=== PATIENT | female | born 1950 | race Caucasian/White ===

== ENCOUNTER → 2020-06-13 12:57 | Outpatient (BNVA) | payer MEDICARE, MEDICAID, SELFPAY | PROVIDERS: Visit Provider Internal Medicine Cardiovascular Disease | DX: R00.2 Palpitations (principal); R07.9 Chest pain, unspecified | CPT/HCPCS: 93005; 99212 ==

== ENCOUNTER 2020-06-29 13:12 | Outpatient (REF) | payer MEDICARE, MEDICAID, SELFPAY ==
--- NOTE | 2020-06-29 | MM_ITS ---
EXAMINATION: MM SCREENING DIGITAL BREAST TOMOSYNTHESIS, BILATERAL CLINICAL INFORMATION: Screening. Asymptomatic. The lifetime risk of breast cancer based on the Tyrer-Cuzick Model is 7%. COMPARISON: Mammography: 06/24/2019, 06/02/2017 TECHNIQUE: Digital breast tomosynthesis is performed in both the craniocaudal and mediolateral oblique views along with computer-aided detection (CAD). Synthesized 2D images are generated from the tomosynthesis. FINDINGS: There are scattered areas of fibroglandular density (ACR BI-RADS breast composition Category b). There are no significant masses, abnormal calcifications, or other abnormalities. There is biopsy clip marker again noted mid 9:00 left breast. The axilla and skin contours are unremarkable. MM/MM tomosynthesis screening BI IMPRESSION: No mammographic evidence of malignancy. ASSESSMENT: BI-RADS 1: Negative RECOMMENDATION: Routine annual mammography screening. This patient's information was entered into a reminder system with a target due date for their next mammogram.
== END 2020-06-29 13:13 | disposition home or self-care (01) ==
LOC: HO.MAMMO 13:12
PROVIDERS: Visit Provider Family Medicine
DX: Z12.31 Encounter for screening mammogram for malignant neoplasm of breast (principal)
CPT/HCPCS: 77063; 77067

== ENCOUNTER 2020-08-21 07:34 | Outpatient (REF) | payer MEDICARE, MEDICAID, SELFPAY ==
--- NOTE | ~2020-08-21 | XR_ITS ---
EXAMINATION: XR SHOULDER, RIGHT CLINICAL INFORMATION: Right shoulder pain COMPARISON: None TECHNIQUE: AP external rotation, Grashey, scapular Y, and axillary views of the right shoulder. FINDINGS: There is mild loss of right glenohumeral and AC joint space with moderate hypertrophic changes of right AC joint and mild enthesophytes along the greater tuberosity. No loose bodies, bony changes or soft tissue calcifications seen. No visible acute fracture. XR/XR shoulder RT min 2V IMPRESSION: Degenerative arthritic changes right shoulder. No acute fracture, loose bodies or soft tissue calcification.
== END 2020-08-21 07:35 | disposition home or self-care (01) ==
LOC: HO.HOSX 07:34
PROVIDERS: Visit Provider Orthopaedic Surgery
DX: M75.41 Impingement syndrome of right shoulder (principal)
CPT/HCPCS: 73030; 99202; J1040

== ENCOUNTER → 2020-08-30 14:02 | Outpatient (BNVA) | payer MEDICARE, MEDICAID, SELFPAY | PROVIDERS: PCP Family Medicine; Referring Provider Family Medicine; Visit Provider Physician Assistant | DX: Z87.19 Personal history of other diseases of the digestive system (principal) | CPT/HCPCS: 99212 ==

== ENCOUNTER → 2021-03-25 14:46 | Outpatient (BNVA) | payer MEDICARE, MEDICAID, SELFPAY | PROVIDERS: PCP Family Medicine; Referring Provider Family Medicine; Visit Provider Internal Medicine Cardiovascular Disease | DX: R00.2 Palpitations (principal); R07.9 Chest pain, unspecified | CPT/HCPCS: 99212 ==

== ENCOUNTER 2021-07-01 13:31 | Outpatient (REF) | payer MEDICARE, MEDICAID, SELFPAY ==
--- NOTE | ~2021-07-01 | MM_ITS ---
EXAMINATION: MM SCREENING DIGITAL BREAST TOMOSYNTHESIS, BILATERAL CLINICAL INFORMATION: Screening. Asymptomatic. The lifetime risk of breast cancer based on the Tyrer-Cuzick Model is 3%. COMPARISON: Mammography: 06/29/2020, 06/24/2019, 06/02/2017 TECHNIQUE: Digital breast tomosynthesis is performed in both the craniocaudal and mediolateral oblique views along with computer-aided detection (CAD). Synthesized 2D images are generated from the tomosynthesis. FINDINGS: There are scattered areas of fibroglandular density (ACR BI-RADS breast composition Category b). There are no significant masses, abnormal calcifications, or other abnormalities. Parenchymal pattern is similar to prior exams. No developing density. Biopsy clip marker again noted mid 9:00 left breast. The axilla and skin contours are unremarkable. MM/MM tomosynthesis screening BI IMPRESSION: No mammographic evidence of malignancy. ASSESSMENT: BI-RADS 1: Negative RECOMMENDATION: Routine annual mammography screening. This patient's information was entered into a reminder system with a target due date for their next mammogram.
== END 2021-07-01 13:32 | disposition home or self-care (01) ==
LOC: HO.MAMMO 13:31
PROVIDERS: PCP Family Medicine; Visit Provider Family Medicine
DX: Z12.31 Encounter for screening mammogram for malignant neoplasm of breast (principal)
CPT/HCPCS: 77063; 77067

== ENCOUNTER 2022-03-02 08:57 | Emergency (ER) | payer MEDICARE, MEDICAID, SELFPAY ==
[2022-03-02 09:31] VITALS: BP 143/72; PULSE 114; RESP 19; TEMP 37.9; O2SAT 95; BMI 25.4
--- NOTE | 2022-03-02 11:05 | ED_ITS ---
HPI - General Adult General Chief complaint: Upper Respiratory Symptoms Stated complaint: COVID+/Cough/SOB Time Seen by Provider: 03/02/22 11:05 Source: patient Mode of arrival: ambulatory Limitations: no limitations History of Present Illness HPI narrative: Patient is a 71 year old female presenting to the emergency department today with a cough. Patient states that tested positive for COVID-19 2 days ago and she is still having a cough and feeling generally unwell. Patient denies any dizziness, lightheadedness, abdominal pain, nausea, vomiting, chills, blurry vision, double vision, loss of vision, chest pain, difficulty breathing, shortness of breath, back pain, night sweats, pain with urination, increased urinary frequency, increased urinary urgency, blood in her urine or stool, syncope or a near syncopal episode, recent trauma or falls, bowel incontinence, bladder incontinence, bowel retention, bladder retention, or any other complaints at this time. Onset (ago): day(s) (2) Radiation: non-radiation Severity: mild Severity scale (1-10): 2 Relieving factors: none Exacerbating factors: none Associated symptoms: cough and fever/chills Treatments prior to arrival: none Related Data Home Medications Medication Instructions Recorded Confirmed atenolol 50 mg tablet 50 mg PO DAILY 06/13/20 03/25/21 atorvastatin 80 mg tablet (Lipitor) 80 mg PO DAILY 06/13/20 03/25/21 gabapentin 300 mg capsule 300 mg PO DAILY 06/13/20 03/25/21 lorazepam 0.5 mg tablet 0.5 mg PO DAILY PRN 06/13/20 03/25/21 sennosides 8.6 mg tablet (senna) 8.6 mg PO DAILY 08/30/20 03/25/21 clonazepam 0.5 mg tablet mg PO 03/25/21 03/25/21 fluticasone propionate 110 inhalation 03/25/21 03/25/21 mcg/actuation HFA aerosol inhaler (Flovent HFA) gabapentin 100 mg capsule mg PO 03/25/21 03/25/21 hydroxyzine HCl 25 mg tablet mg PO 03/25/21 03/25/21 lisinopril 10 mg tablet mg PO 03/25/21 03/25/21 metformin 500 mg tablet mg PO 03/25/21 03/25/21 mirtazapine 15 mg tablet mg PO 03/25/21 03/25/21 nortriptyline 25 mg capsule mg PO 03/25/21 03/25/21 omeprazole 20 mg capsule,delayed mg PO 03/25/21 03/25/21 release quetiapine 25 mg tablet mg PO 03/25/21 03/25/21 risperidone 1 mg tablet mg PO 03/25/21 03/25/21 sertraline 100 mg tablet mg PO 03/25/21 03/25/21 Previous Rx's Medication Instructions Recorded benzonatate 100 mg capsule 100 mg PO BID PRN cough 7 days #14 03/02/22 caps Allergies Allergy/AdvReac Type Severity Reaction Status Date / Time penicillin G [Penicillin G] Allergy Intermediate RASH Verified 03/02/22 09:31 penicillin V Allergy Intermediate Bleeding Verified 03/02/22 09:31 seafood Allergy Severe Itching,swe Uncoded 10/25/20 13:12 lling Shellfish Allergy Severe SOB,HIVES Uncoded 10/25/20 13:12 Review of Systems Constitutional: Constitutional: Reports no additional constitutional complaints, Denies chills, Reports fever(s) and Denies night sweats Eyes: Eyes: Reports no additional eye complaints, Denies blurry vision, Denies change in vision, Denies diplopia, Denies eye discharge, Denies loss of vision and Denies eye pain ENT: Denies dizziness Cardiovascular: Cardiovascular: Reports no additional cardiovascular complaints, Denies chest pain, Denies lightheadedness, Denies Loss of Consciousness and Denies dyspnea Respiratory: Respiratory: Reports no additional respiratory complaints, Reports cough and Denies dyspnea Gastrointestinal: Gastrointestinal: Reports no additional gastrointestinal complaints, Denies abdominal pain, Denies melena, Denies hematochezia, Denies change in bowel habits and Denies change in stool character Genitourinary: Genitourinary: Denies hematuria, Denies urinary frequency, Denies dysuria, Denies urinary incontinence, Denies urinary hesitancy and Denies urinary urgency Musculoskeletal: Musculoskeletal: Reports no additional musculoskeletal complaints, Denies numbness and Denies tingling Neurologic: Denies dizziness, Denies loss of vision, Denies numbness and Denies tingling Psychiatric: Psychiatric: Reports no additional psychiatric complaints Endocrine: Endocrine: Reports no additional endocrine complaints Hematologic/Lymphatic: Hematologic/Lymphatic: Reports no additional hematologic/lymphatic complaints Allergic/Immunologic: Allergic/Immunologic: Reports no additional allergic/immunologic complaints [facility] Past Medical History Attestation statement: The following information was validated with the patient. Source: old records reviewed Medical History Asthma Chest pain Chronic fatigue GERD (gastroesophageal reflux disease) Palpitations Scoliosis Surgical History H/O: hysterectomy Family History Family History Father Renal failure Mother Alzheimer disease Social History Social History Household Members: Children Alcohol intake: never Advance Directives: No Advance Directives Information Provided: Yes Current occupational status: retired Physical Exam ED Vital Signs: Vital Signs - 24 hr 03/02/22 09:31 Temperature 100.3 F Pulse Rate 114 H Respiratory Rate 19 Blood Pressure 143/72 H Pulse Oximetry 95 Oxygen Delivery Method Room Air BMI result Body Mass Index 25.4 Const General: cooperative, no acute distress, alert and awake Nutritional Appearance: well nourished Orientation/consciousness: patient oriented x3 Limitations: no limitations HENMT Head: Yes normal to inspection and Yes atraumatic Ears: hearing grossly normal bilaterally and external ears normal General nose exam: Normal external nose present, no nasal discharge noted and no epistaxis Face and sinus: Yes normal facial exam, No abrasion and No laceration Mouth: Normal oral and palatal mucosa present, no drooling and no muffled voice Eyes General: appearance normal, both eyes and all related structures Periorbital: periorbital findings normal Eyelids: Yes eyelids normal Conjunctivae: conjunctivae normal Pupils: Equal, round and reactive pupils present EOM: EOMs intact bilaterally Neck Neck: Yes normal visual inspection, Yes full ROM and Yes no lymphadenopathy Chest Chest palpation & inspection: normal inspection of the chest Resp Effort & Inspection: normal respiratory effort and able to speak in complete sentences Auscultation: clear to auscultation bilaterally Cardio Rate: regular rate Rhythm: regular rhythm GI Inspection: Yes normal to inspection Neuro General: patient oriented x3 and moves all extremities Cranial nerves: Yes Equal, round and reactive pupils present Cognition (Neuro): normal cognition Motor exam (neuro): 5/5 motor strength present throughout Sensory Exam: Normal double simultaneous stimulation for sensation Coordination: [id number] test normal Extrem General: Yes normal to inspection, Yes full ROM and Yes capillary refill normal Psych Appearance: grossly normal Mental Status: mental status grossly normal Affect: normal affect Attitude: cooperative Thought process: Normal thought process present Thought content: Normal thought content present Insight: Good insight present (Psych) Medical Decision Making MDM Narrative Medical decision making narrative: Patient is a 71 year old female presenting to the emergency department today with a cough and feeling generally unwell. Patient's physical exam was unremarkable. Patient's COVID-19 test was positive at home. I explained my physical exam findings to the patient. I answered all questions asked by the patient. Patient received PO Tylenol which she stated helped her symptoms significantly. I stressed the importance of the patient taking her medication as prescribed. I stressed the importance of the patient following up with her primary care provider. I stressed the importance of the patient returning to the emergency department immediately if her symptoms were to worsen or if she were to develop any dizziness, shortness of breath, difficulty breathing, chest pain, blurry vision, loss of vision, nausea, vomiting, abdominal pain, fever, chills, back pain, or any other complaints. Patient verbalized agreement and understanding with this treatment plan and discharge. Differential Diagnosis Differential Diagnosis: COVID-19 Medical Records Medical records reviewed: Yes I reviewed the patient's medical records. Discharge Plan Discharge Clinical Impression: COVID-19 Patient Disposition: Home, Self-Care Instructions: COVID-19 (Coronavirus Disease 2019) (ED) Additional Instructions: Follow up with your primary care provider. Return to the emergency department immediately if your symptoms worsen or if you develop any dizziness, shortness of breath, difficulty breathing, chest pain, blurry vision, loss of vision, nausea, vomiting, abdominal pain, fever, chills, back pain, or any other complaints. Prescriptions: New benzonatate 100 mg capsule 100 mg PO BID PRN (Reason: cough) 7 Days Qty: 14 0RF No Action sennosides [senna] 8.6 mg tablet 8.6 mg PO DAILY atenolol 50 mg tablet 50 mg PO DAILY lorazepam 0.5 mg tablet 0.5 mg PO DAILY PRN atorvastatin [Lipitor] 80 mg tablet 80 mg PO DAILY gabapentin 300 mg capsule 300 mg PO DAILY Flovent HFA 110 mcg/actuation HFA aerosol inhaler inhalation risperidone 1 mg tablet PO mirtazapine 15 mg tablet PO gabapentin 100 mg capsule PO hydroxyzine HCl 25 mg tablet PO omeprazole 20 mg capsule,delayed release(DR/EC) PO lisinopril 10 mg tablet PO nortriptyline 25 mg capsule PO sertraline 100 mg tablet PO metformin 500 mg tablet PO quetiapine 25 mg tablet PO clonazepam 0.5 mg tablet PO Referrals: Michell Rogers DO [Primary Care Provider] - Stand Alone Forms: Work/School Release Print Language: [place]
[2022-03-02] MEDS: Acetaminophen 325 MG TABLET 650 MG PO (11:21)
== END 2022-03-02 11:29 | disposition home or self-care (01) ==
PROVIDERS: Emergency Provider Internal Medicine; PCP Family Medicine
DX: U07.1 COVID-19 (principal); R05.9 Cough, unspecified; R06.02 Shortness of breath; Z79.899 Other long term (current) drug therapy
CPT/HCPCS: 99283

== ENCOUNTER 2022-07-22 09:47 | Outpatient (REF) | payer OTHER, SELFPAY ==
--- NOTE | ~2022-07-22 | MM_ITS ---
EXAMINATION: MM SCREENING DIGITAL BREAST TOMOSYNTHESIS, BILATERAL CLINICAL INFORMATION: Screening. Asymptomatic. The lifetime risk of breast cancer based on the Tyrer-Cuzick Model is 3%. COMPARISON: Mammography: 07/01/2021, 06/29/2020, 06/24/2019 TECHNIQUE: Digital breast tomosynthesis is performed in both the craniocaudal and mediolateral oblique views along with computer-aided detection (CAD). Synthesized 2D images are generated from the tomosynthesis. FINDINGS: There are scattered areas of fibroglandular density (ACR BI-RADS breast composition Category b). There are no significant masses, abnormal calcifications, or other abnormalities. Breast tissue composition borders on predominantly fatty. Background stromal and fibroglandular densities are stable. No architectural abnormality or developing density. The axilla are unremarkable. No significant changes. Incidental biopsy clip marker again noted mid 9:00 left breast. MM/MM tomosynthesis screening BI IMPRESSION: No mammographic evidence of malignancy. ASSESSMENT: BI-RADS 1: Negative RECOMMENDATION: Routine annual mammography screening. This patient's information was entered into a reminder system with a target due date for their next mammogram.
== END 2022-07-22 09:48 | disposition home or self-care (01) ==
LOC: HO.MAMMO 09:47
PROVIDERS: Visit Provider Family Medicine
DX: Z12.31 Encounter for screening mammogram for malignant neoplasm of breast (principal)
CPT/HCPCS: 77063; 77067

== ENCOUNTER 2022-09-25 10:42 | Outpatient (REF) | payer OTHER, SELFPAY ==
--- NOTE | ~2022-09-25 | XR_ITS ---
EXAMINATION: XR CHEST CLINICAL INFORMATION: Reason for Exam BRONCHITIS COMPARISON: Rib radiographs 10/26/2017 TECHNIQUE: 2 views of the chest FINDINGS: Tiny punctate granuloma in the right upper lung unchanged. Lungs appear otherwise clear. No pneumothorax or pleural effusion. Unchanged cardiomediastinal silhouette. XR/XR chest 2V IMPRESSION: * Stable tiny punctate right upper lung calcified granuloma, otherwise clear lungs.
--- NOTE | ~2022-09-25 | XR_ITS ---
EXAMINATION: XR HIP, RIGHT CLINICAL INFORMATION: Right hip pain. COMPARISON: 06/21/2019 TECHNIQUE: AP and frog-leg lateral views of the right hip. FINDINGS: Mild osteoarthritis of the right hip is characterized by acetabular osteophytes. No joint space narrowing. Minimal osteoarthritis in the SI joints. Pubic symphysis is normal. Enthesopathic spurring is present at the greater trochanter and anterior superior iliac spine. Soft tissues are unremarkable. XR/XR hip RT min 2V IMPRESSION: Mild osteoarthritis in the right hip. No acute osseous findings.
== END 2022-09-25 10:43 | disposition home or self-care (01) ==
LOC: HO.XRAY 10:42
PROVIDERS: PCP Family Medicine; Visit Provider Family Medicine
DX: M25.551 Pain in right hip (principal); J40 Bronchitis, not specified as acute or chronic
CPT/HCPCS: 71046; 73502

== ENCOUNTER 2023-04-02 08:45 | Outpatient (AMB) | payer OTHER, SELFPAY ==
--- NOTE | 2023-04-02 08:52 | MHC.OFFVIS ---
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 Patient reports that she is having pain on the lateral aspect of the hip. Patient states that at times the pain will radiate down her right leg. She also reports intermittent weakness in her right leg. She has tried Tylenol and anti-inflammatory medicines which gave her minimal relief patient has also done physical therapy which aggravated her symptoms. Allergies penicillin G [Penicillin G] Allergy (Intermediate, Verified 03/02/22 09:31) RASH penicillin V Allergy (Intermediate, Verified 03/02/22 09:31) Bleeding seafood Allergy (Severe, Uncoded 10/25/20 13:12) Itching,swelling Shellfish Allergy (Severe, Uncoded 10/25/20 13:12) SOB,HIVES Medication List - Last Reconciled 04/02/23 by Velasquez Seymour MD atenolol 50 mg PO DAILY atorvastatin (Lipitor) 80 mg PO DAILY benzonatate 100 mg PO BID PRN 7 days calcium carbonate-vitamin D3 600 mg-10 mcg (400 unit) 1 tab PO clonazepam mg PO fluticasone propionate 110 mcg/actuation (Flovent HFA) inhalation gabapentin 300 mg PO DAILY gabapentin mg PO lisinopril mg PO lorazepam 0.5 mg PO DAILY PRN metformin mg PO mirtazapine mg PO nortriptyline mg PO omeprazole mg PO quetiapine mg PO risperidone mg PO sennosides (senna) 8.6 mg PO DAILY sertraline mg PO [facility] Medical History Asthma Chest pain Chronic fatigue GERD (gastroesophageal reflux disease) Palpitations Scoliosis Surgical History H/O: hysterectomy Family History Father Renal failure Mother Alzheimer disease Social History Household Members: Children Alcohol intake: never Current occupational status: retired Physical Exam Vital Signs: BMI result Body Mass Index 25.4 Const Other: Well-nourished well-developed very friendly female awake alert and oriented x3 in no acute distress Extrem Other: Bilateral lower extremity examination shows good capillary refill, no skin lesions noted, normal sensation light touch Right hip examination shows full range of motion when compared to her left hip of mild discomfort with range of motion, tenderness over her greater trochanteric bursa, no overlying skin lesions Office Procedures Joint Injection/Drain Joint Injection/Drain Primary Site: other (Right hip greater trochanteric bursa) Prep: site was prepped using aseptic technique Injected: 40 mg of, Kenalog and 1% plain lidocaine Procedure: The patient tolerated the procedure well Coding - Large joint Procedure code (CPT) selection complete Results Reviewed Results Reviewed: 04/02/23 08:59 Lidocaine HCl 2 % MPF [Xylocaine 2 % MPF] 5 ml .ROUTE .STK-MED ONE Triamcinolone Acetonide [Kenalog-40] 40 mg .ROUTE .STK-MED ONE X-rays of the patient's right hip show mild diffuse joint space narrowing, no acute bony abnormalities Assessment & Plan Assessment & Plan (1) Bursitis of hip, right: Code(s): M70.71 - Other bursitis of hip, right hip Plan Ms. Sanchez presents with pain along the lateral aspect of her right hip most likely due to greater trochanteric bursitis. I had a lengthy discussion with the patient and her daughter the treatment options. The patient does not wish to go to formal physical therapy again. The risks and benefits of a cortisone injection were discussed at length with the patient. The patient wished to proceed. She tolerated the right hip bursa injection well. Activity modifications and stretching exercises were discussed at length with the patient. She will contact me prior to her follow-up appointment in 2 months should her symptoms worsen in any way. Feel free to call me at any time should questions regarding her orthopedic management arise. Thank you very much for asking me to see this very friendly patient. I spent 22 minutes in reviewing the patient's records and imaging studies, seeing the patient and documenting in the medical record. Orders: Orders AMB Joint Injection/Aspiration Today M70.71 - Other bursitis of hip, right hip Coding Level of Care Code New Pt Level 2 (63268) Diagnoses Bursitis of hip, right M70.71 CPT Codes Coding - Large joint: 12853 - Large joint ([id number])
[2023-04-02 08:55] VITALS: BMI 25.4
== END 2023-04-02 09:18 | disposition home or self-care (01) ==
PROVIDERS: PCP Family Medicine; Visit Provider Orthopaedic Surgery
DX: M70.71 Other bursitis of hip, right hip (principal)
CPT/HCPCS: 20610; 99214

== ENCOUNTER → 2023-04-02 08:45 | Outpatient (BNVA) | payer OTHER, SELFPAY | PROVIDERS: PCP Family Medicine; Visit Provider Orthopaedic Surgery | DX: M70.71 Other bursitis of hip, right hip (principal) | CPT/HCPCS: 20610; 99212; J3301 ==

== ENCOUNTER 2023-04-23 09:40 | Outpatient (REF) | payer OTHER, SELFPAY ==
[2023-04-23 11:07] LABS: MANUAL DIFF FLAG NO
[2023-04-23 11:13] LABS: Basophils Percent Auto 0.5 % (0-2); Eosinophils Percent Auto 0.6 % (0-4); Hematocrit 37.6 % (37.0-47.0); Hemoglobin 12.6 g/dl (12.0-16.0); Imm Gran Abs Auto 0.02 X10*3/uL (0.00-0.03); Imm Gran Pct Auto 0.3 % (0.0-0.4); Lymphocytes Absolute Auto 1.9 X10*3/uL (1.2-4.9); Lymphocytes Percent Auto 29.9 % (20-40); Mean Corpuscular HGB Conc 33.5 g/dl (31.0-35.0); Mean Corpuscular Hemoglobin 29.8 pg (27.0-33.0); Mean Corpuscular Volume 88.9 fL (80.0-98.0); Mean Platelet Volume 9.5 fL (9.4-12.3); Monocytes Absolute Auto 0.4 X10*3/uL (0.1-1.2); Monocytes Percent Auto 6.1 % (2-11); Neutrophils Percent Auto 62.6 % (45-73); Platelet Count 259 X10*3/uL (160-400); Red Blood Count 4.23 X10*6/uL (4.20-5.50); Red Cell Distribution Width 12.1 % (11.0-16.0); White Blood Count 6.4 X10*3/uL (4.8-10.8)
[2023-04-23 11:24] LABS: Estimated Average Glucose 120 mg/dL; Hemoglobin A1c % 5.8 % (<6.0)
[2023-04-23 11:55] LABS: Alanine Aminotransferase 38 U/L (0-31); Albumin Level 4.5 g/dL (3.5-5.0); Alkaline Phosphatase 46 U/L (39-117); Anion Gap 12 (12-20); Aspartate Amino Transferase 22 U/L (5-31); Bilirubin Direct 0.1 mg/dL (0.0-0.5); Bilirubin Total 0.4 mg/dL (0.0-1.0); Blood Urea Nitrogen 10 mg/dL (9-16); Calcium 9.4 mg/dL (8.4-10.2); Carbon Dioxide 29 mmol/L (22-29); Chloride 105 mmol/L (96-108); Cholesterol 126 mg/dL (<200); Estimated Glomerular Filt Rate > 60; Glucose Random 115 mg/dL (60-115); HDL Cholesterol 29 mg/dL (>40); LDL Cholesterol Calculated 66 mg/dL (<100); Potassium 4.5 mmol/L (3.3-5.1); Sodium 141 mmol/L (135-145); Total Protein 7.2 g/dL (6.5-8.0); Triglycerides 157 mg/dL (<150)
[2023-04-23 11:57] LABS: Free T4 (Free Thyroxine) 0.91 ng/dL (0.71-1.85); Thyroid Stimulating Hormone 2.74 uIU/mL (0.32-4.0); Vitamin D 25-OH Total 65.3 ng/mL (>30)
[2023-04-23 12:05] LABS: Creatinine Urine 170.17 mg/dL; Microalbum/Creatinine Ratio Ur 18.2 ug/mg cr (<30)
== END 2023-04-23 09:41 | disposition home or self-care (01) ==
LOC: HO.HHCL 09:40
PROVIDERS: Visit Provider Family Medicine
DX: E11.9 Type 2 diabetes mellitus without complications (principal); E55.9 Vitamin D deficiency, unspecified
CPT/HCPCS: 36415; 80048; 80061; 80076; 82043; 82306; 82570; 83036; 84439; 84443; 85025

== ENCOUNTER 2023-06-10 10:51 | Outpatient (AMB) | payer OTHER, SELFPAY ==
--- NOTE | 2023-06-10 11:09 | MHC.OFFVIS ---
Intake Vital Signs 06/10/23 11:10 Height 5 ft Weight 130 lb BMI 25.4 Intake Visit Reasons: OV- Chronic right hip pain Intake Note: Janessa, 72 year old female, presents today with complaints of progressively worsening low back pain which radiates down her right leg to her right foot. She also reports intermittent weakness in her right leg. At her last visit she was given a cortisone injection into her right hip greater trochanteric bursa which gave her mild relief of her right hip pain. She has taken Tylenol, anti-inflammatory medicines and gabapentin which gave her only mild relief. She states that at time she feels like her right leg will give out. Allergies penicillin G [Penicillin G] Allergy (Intermediate, Verified 06/10/23 11:10) RASH penicillin V Allergy (Intermediate, Verified 06/10/23 11:10) Bleeding seafood Allergy (Severe, Uncoded 06/10/23 11:10) Itching,swelling Shellfish Allergy (Severe, Uncoded 06/10/23 11:10) SOB,HIVES Medication List - Last Reconciled 06/10/23 by Velasquez Seymour MD atenolol 50 mg PO DAILY atorvastatin (Lipitor) 80 mg PO DAILY benzonatate 100 mg PO BID PRN 7 days calcium carbonate-vitamin D3 600 mg-10 mcg (400 unit) 1 tab PO clonazepam mg PO fluticasone propionate 110 mcg/actuation (Flovent HFA) inhalation gabapentin 300 mg PO DAILY gabapentin mg PO lisinopril mg PO lorazepam 0.5 mg PO DAILY PRN metformin mg PO mirtazapine mg PO nortriptyline mg PO omeprazole mg PO quetiapine mg PO risperidone mg PO sennosides (senna) 8.6 mg PO DAILY sertraline mg PO PFSH Medical History Asthma Chest pain Chronic fatigue GERD (gastroesophageal reflux disease) Palpitations Scoliosis Surgical History H/O: hysterectomy Family History Father Renal failure Mother Alzheimer disease Social History Household Members: Children Alcohol intake: never Current occupational status: retired Physical Exam Vital Signs: BMI result Body Mass Index 25.4 Const Other: Well-nourished well-developed very friendly female awake alert and oriented x3 in no acute distress Back/Spine/Pelvis Other: Low back examination shows right-sided paraspinal muscle tenderness, pain with range of motion, positive straight leg raise test on the right at 70 degrees, 4/5 strength with testing of her right hip flexors and knee extensors when compared to 5/5 strength on her left side Extrem Other: Right hip examination shows full range of motion when compared to her left hip, minimal tenderness over her bursa, no overlying skin lesions Assessment & Plan Assessment & Plan (1) Low back pain radiating to right leg: Code(s): M54.50 - Low back pain, unspecified; M79.604 - Pain in right leg Plan Ms. Sanchez presents with progressively worsening low back pain which radiates down her right leg as well as associated right leg weakness possibly due to lumbar stenosis or a disc herniation. Thus, I will send the patient for an MRI of her lumbar spine for further evaluation. I will see her back once the MRI is completed to discuss the findings. She will call me prior to that time should her symptoms worsen in any way. Feel free to call me at any time should questions regarding her orthopedic management arise. I spent 22 minutes in reviewing the patient's records and imaging studies, seeing the patient and documenting in the medical record. Orders: Orders MR lumbar spine wo con Today M54.50 - Low back pain, unspecified, M79.604 - Pain in right leg Coding Level of Care Code Est Pt Level 2 (11120) Diagnoses Low back pain radiating to right leg M54.50; M79.604
[2023-06-10 11:10] VITALS: BMI 25.4
== END 2023-06-10 11:30 | disposition home or self-care (01) ==
PROVIDERS: PCP Family Medicine; Visit Provider Orthopaedic Surgery
DX: M54.50 Low back pain, unspecified (principal); M79.604 Pain in right leg
CPT/HCPCS: 99213

== ENCOUNTER → 2023-06-10 10:51 | Outpatient (BNVA) | payer OTHER, SELFPAY | PROVIDERS: PCP Family Medicine; Visit Provider Orthopaedic Surgery | DX: M54.50 Low back pain, unspecified (principal); M79.604 Pain in right leg | CPT/HCPCS: 99212 ==

== ENCOUNTER 2023-07-24 08:59 | Outpatient (REF) | payer OTHER, SELFPAY ==
--- NOTE | ~2023-07-24 | MM_ITS ---
EXAMINATION: MM SCREENING DIGITAL BREAST TOMOSYNTHESIS, BILATERAL CLINICAL INFORMATION: Screening. Asymptomatic. COMPARISON: Mammography: This study is compared with prior exams dating back to 2017. TECHNIQUE: Digital breast tomosynthesis is performed in both the craniocaudal and mediolateral oblique views along with computer-aided detection (CAD). Synthesized 2D images are generated from the tomosynthesis. FINDINGS: The breasts are almost entirely fatty (ACR BI-RADS breast composition Category a). There are no significant masses, abnormal calcifications, or other abnormalities. There is a tissue marker in the medial aspect of the left breast from prior benign percutaneous biopsy. MM/MM tomosynthesis screening BI IMPRESSION: No mammographic evidence of malignancy. ASSESSMENT: BI-RADS BI-RADS 2 - Benign Findings RECOMMENDATION: Routine annual mammography screening. 1 year F/U This examination should not preclude the clinical evaluation of a suspicious palpable abnormality. This patient's information was entered into a reminder system with a target due date for their next mammogram.
== END 2023-07-24 09:00 | disposition home or self-care (01) ==
LOC: HO.MAMMO 08:59
PROVIDERS: PCP Family Medicine; Visit Provider Family Medicine
DX: Z12.31 Encounter for screening mammogram for malignant neoplasm of breast (principal)
CPT/HCPCS: 77063; 77067

== ENCOUNTER → 2023-07-24 09:15 | Outpatient (BNV) | payer OTHER, SELFPAY | PROVIDERS: PCP Family Medicine; Visit Provider Radiology Diagnostic Radiology | DX: Z12.31 Encounter for screening mammogram for malignant neoplasm of breast (principal) | CPT/HCPCS: 77063; 77067 ==

== ENCOUNTER 2023-07-28 16:01 | Outpatient (REF) | payer OTHER, SELFPAY ==
--- NOTE | ~2023-07-28 | MR_ITS ---
EXAMINATION: MR LUMBAR SPINE WITHOUT CONTRAST CLINICAL INFORMATION: Low back pain. COMPARISON: X-ray lumbar spine dated 03/21/2015. TECHNIQUE: Multiplanar, multisequence imaging was obtained. FINDINGS: VERTEBRAL BODIES AND PARASPINAL STRUCTURES: The marrow signal is within normal limits. There are no compression fractures or subluxations. There is congenital narrowing of the lower lumbosacral canal with foreshortening of the pedicles. Mild epidural fat prominence also evident from the lower L4 level through the upper S1 levels. The paraspinal soft tissues appear normal. There is a small exophytic 1.5 cm cyst protruding off the upper pole of the left kidney, for which no further imaging follow up is indicated. The visualized portions of the bony pelvis appear normal. CONUS MEDULLARIS AND CAUDA EQUINE: The distal cord, conus tip, and cauda equina nerve roots are normal. SPINAL LEVELS: L1-L2 and L2-L3: Well-hydrated normal appearance of the discs without central canal stenosis or foraminal narrowing. Mild anterolateral endplate osteophytic spurring visible. L3-L4: Very mild disc bulge and mild facet arthropathy without central canal stenosis or foraminal narrowing. L4-L5: Mildly reduced intradiscal signal and concentric disc bulge with thickening of the ligamentum flavum and hypertrophic facet arthropathy. Dorsal epidural fat prominence also evident at this level resulting in moderate thecal sac distortion. [id number]-kh-[id number] central canal stenosis. Mild right foraminal narrowing due to facet spurring and bulging disc. Facet arthropathy contacts the exiting right L4 nerve root. L5-S1: Moderate facet arthropathy and mild disc bulge with mild epidural fat prominence is slightly distorting the thecal sac. Very mild narrowing of the central canal. Facet spurring contacts the exiting left L5 nerve root in the superior left neural foramen with mild encroachment. MR/MR lumbar spine wo con IMPRESSION: 1. Mild disc degeneration and disc bulge with facet arthropathy at L4-L5 resulting in [id number] central canal stenosis. Dorsal epidural fat prominence contributes to moderate thecal sac distortion. Facet spurring contacts the exiting right L4 nerve root in the right neural foramen. 2. Moderate facet degeneration and mild disc bulge at L5-S1 with mild epidural fat prominence. Very mild narrowing of the central canal. Facet spurring contacts the exiting left L5 nerve root in the superior left neural foramen.
== END 2023-07-28 16:02 | disposition home or self-care (01) ==
LOC: HO.MRI 16:01
PROVIDERS: PCP Family Medicine; Visit Provider Orthopaedic Surgery
DX: M54.50 Low back pain, unspecified (principal); M79.604 Pain in right leg
CPT/HCPCS: 72148

== ENCOUNTER 2023-08-12 10:49 | Outpatient (AMB) | payer OTHER, SELFPAY ==
--- NOTE | 2023-08-12 11:19 | A.OFFVIS_ITS ---
Intake Vital Signs 08/12/23 11:20 Height 5 ft Weight 130 lb BMI 25.4 Intake Visit Reasons: OV - lumbar spine MRI review Intake Note: Janessa is a 72 year old female who presents for a MRI review of her lumbar spine. The patient describes her low back pain as sharp in nature. Most of the pain is along the right side of her low back. She denies any groin pain. She has had cortisone injections given into her right hip bursa which gave her minimal relief. She has also tried Tylenol and anti-inflammatory medicines which gave her only mild relief. Allergies penicillin G [Penicillin G] Allergy (Intermediate, Verified 08/12/23 11:22) RASH penicillin V Allergy (Intermediate, Verified 08/12/23 11:22) Bleeding seafood Allergy (Severe, Uncoded 06/10/23 11:10) Itching,swelling Shellfish Allergy (Severe, Uncoded 06/10/23 11:10) SOB,HIVES Medication List - Last Reconciled 08/12/23 by Velasquez Seymour MD atenolol 50 mg PO DAILY atorvastatin (Lipitor) 80 mg PO DAILY benzonatate 100 mg PO BID PRN 7 days calcium carbonate-vitamin D3 600 mg-10 mcg (400 unit) 1 tab PO clonazepam mg PO fluticasone propionate 110 mcg/actuation (Flovent HFA) inhalation gabapentin 300 mg PO DAILY gabapentin mg PO lisinopril mg PO lorazepam 0.5 mg PO DAILY PRN metformin mg PO mirtazapine mg PO nortriptyline mg PO omeprazole mg PO quetiapine mg PO risperidone mg PO sennosides (senna) 8.6 mg PO DAILY sertraline mg PO [facility] Medical History Chest pain Asthma Palpitations Chronic fatigue Scoliosis GERD (gastroesophageal reflux disease) Surgical History H/O: hysterectomy Family History Father Renal failure Mother Alzheimer disease Social History Household Members: Children Alcohol intake: never Current occupational status: retired Physical Exam Vital Signs: BMI result Body Mass Index 25.4 Const Other: Well-nourished well-developed very friendly female awake alert and oriented x3 in no acute distress Extrem Other: Bilateral lower extremity examination shows good capillary refill, no skin lesions noted, normal sensation light touch Low back examination shows tenderness over her right sacroiliac joint, negative straight leg raise test, pain with range of motion Right hip examination shows minimal discomfort with range of motion, mild tenderness over her bursa Results Reviewed Results Reviewed: X-rays of the patient's right hip show mild joint space narrowing, no acute bony abnormalities MRI of the patient's lumbar spine shows mild to moderate central canal stenosis at level L4-L5 as well as moderate facet arthropathy at level L5-S1 Assessment & Plan Assessment & Plan (1) Chronic right sacroiliac joint pain: Code(s): M53.3 - Sacrococcygeal disorders, not elsewhere classified; G89.29 - Other chronic pain Plan Ms. Sanchez presents with right-sided low back pain most likely due to sacroiliitis. Thus, I will arrange for her to have an evaluation by Dr. Vallejo here in our pain management department. She will follow-up as instructed. Because of the patient's mild degenerative changes seen on her right hip x-ray I do not feel that her symptoms are coming from intra-articular right hip pathology. She will follow up with me on an as-needed basis. Feel free to call me at any time should questions regarding her orthopedic management arise. I spent 22 minutes in reviewing the patient's records and imaging studies, seeing the patient and documenting in the medical record. Orders: Referrals Pain Management Referral G89.29 - Other chronic pain, M53.3 - Sacrococcygeal disorders, not elsewhere classified Coding Level of Care Code Est Pt Level 2 (54816) Diagnoses Chronic right sacroiliac joint pain M53.3; G89.29
[2023-08-12 11:20] VITALS: BMI 25.4
== END 2023-08-12 11:48 | disposition home or self-care (01) ==
PROVIDERS: PCP Family Medicine; Visit Provider Orthopaedic Surgery
DX: M53.3 Sacrococcygeal disorders, not elsewhere classified (principal); G89.29 Other chronic pain
CPT/HCPCS: 99213

== ENCOUNTER → 2023-08-12 10:49 | Outpatient (BNVA) | payer OTHER, SELFPAY | PROVIDERS: PCP Family Medicine; Visit Provider Orthopaedic Surgery | DX: M53.3 Sacrococcygeal disorders, not elsewhere classified (principal); G89.29 Other chronic pain | CPT/HCPCS: 99212 ==

== ENCOUNTER 2023-08-31 08:57 | Outpatient (AMB) | payer OTHER, SELFPAY ==
--- NOTE | 2023-08-31 09:07 | MHC.OFFVIS ---
Intake Vital Signs 08/31/23 09:09 Height 5 ft Weight 131 lb BMI 25.6 BP 127/62 Blood Pressure Location Lt brachial Position Sitting Respiration 12 Pulse 77 Pulse Source Pulse Oximeter Pulse Oximetry (%) 98 Oxygen Delivery Method Room Air Intake Visit Reasons: Sacrococcygeal disorders, chronic pain Allergies penicillin G [Penicillin G] Allergy (Intermediate, Verified 08/31/23 09:10) RASH penicillin V Allergy (Intermediate, Verified 08/31/23 09:10) Bleeding seafood Allergy (Severe, Uncoded 08/31/23 09:10) Itching,swelling Shellfish Allergy (Severe, Uncoded 08/31/23 09:10) SOB,HIVES Medication List - Last Reconciled 08/31/23 by Aaliyah Yang LPN atenolol 50 mg PO DAILY atorvastatin (Lipitor) 80 mg PO DAILY calcium carbonate-vitamin D3 600 mg-10 mcg (400 unit) 1 tab PO fluticasone propionate 110 mcg/actuation (Flovent HFA) 2 inhalations inhalation BID gabapentin 200 mg PO TID lisinopril 10 mg PO DAILY metformin 1,000 mg PO DAILY mirtazapine 15 mg PO BEDTIME nortriptyline 25 mg PO DAILY omeprazole 20 mg PO DAILY quetiapine 25 mg PO DAILY risperidone 1 mg PO BID sertraline 100 mg PO DAILY HPI Sacrococcygeal disorders, chronic pain HPI Details 72-year-old female who presents today to the office for an evaluation of low back pain. Pain is described as more than 7/10 in intensity. It has been present for longer than 3 months. The patient reports progressively worsening low back pain which radiates down her right leg to her right foot. The patient describes her low back pain as sharp in nature. She rates her pain at 7-8/10 in intensity. She reports intermittent weakness in her right leg. She states that at time she feels like her right leg will give out. She received cortisone injection into her right hip greater trochanteric bursa which gave her mild relief of her right hip pain by Dr. Seymour. She has taken Tylenol, anti-inflammatory medicines and gabapentin which gave her only mild relief. She has tried physical therapy in the past but feels that it worsens her pain. She is also taking mirtazapine, nortriptyline, sertraline, and quetiapine. [facility] Medical History Chest pain Asthma Palpitations Chronic fatigue Scoliosis GERD (gastroesophageal reflux disease) Surgical History H/O: hysterectomy Family History Father Renal failure Mother Alzheimer disease Social History Household Members: Children Alcohol intake: never Current occupational status: retired Review of Systems Const All systems reviewed & are unremarkable except as noted in HPI and below Physical Exam Vital Signs: Last Vital Signs Pulse 77 08/31/23 09:09 Resp 12 08/31/23 09:09 BP 127/62 08/31/23 09:09 Pulse Ox 98 08/31/23 09:09 Oxygen Delivery Method Room Air 08/31/23 09:09 BMI result Body Mass Index 25.6 General: Appears afebrile. Alert and oriented. Mood and affect appropriate. Follows and participates in conversation appropriately. Respiratory effort is unlabored. Able to transition from sit to stand unassisted. Ambulates with bilaterally normal heel strike and toe off. Forward flexion reproduces pain rising up from a forward flex position also reproduces pain. Lumbar extension is too painful to reproduce facet loading Results Reviewed Results Reviewed: 07/28/23: MR LUMBAR SPINE WITHOUT CONTRAST FINDINGS: VERTEBRAL BODIES AND PARASPINAL STRUCTURES: The marrow signal is within normal limits. There are no compression fractures or subluxations. There is congenital narrowing of the lower lumbosacral canal with foreshortening of the pedicles. Mild epidural fat prominence also evident from the lower L4 level through the upper S1 levels. The paraspinal soft tissues appear normal. There is a small exophytic 1.5 cm cyst protruding off the upper pole of the left kidney, for which no further imaging follow up is indicated. The visualized portions of the bony pelvis appear normal. CONUS MEDULLARIS AND CAUDA EQUINE: The distal cord, conus tip, and cauda equina nerve roots are normal. SPINAL LEVELS: L1-L2 and L2-L3: Well-hydrated normal appearance of the discs without central canal stenosis or foraminal narrowing. Mild anterolateral endplate osteophytic spurring visible. L3-L4: Very mild disc bulge and mild facet arthropathy without central canal stenosis or foraminal narrowing. L4-L5: Mildly reduced intradiscal signal and concentric disc bulge with thickening of the ligamentum flavum and hypertrophic facet arthropathy. Dorsal epidural fat prominence also evident at this level resulting in moderate thecal sac distortion. Kpmf-zz-sjxwnncb central canal stenosis. Mild right foraminal narrowing due to facet spurring and bulging disc. Facet arthropathy contacts the exiting right L4 nerve root. L5-S1: Moderate facet arthropathy and mild disc bulge with mild epidural fat prominence is slightly distorting the thecal sac. Very mild narrowing of the central canal. Facet spurring contacts the exiting left L5 nerve root in the superior left neural foramen with mild encroachment. IMPRESSION: 1. Mild disc degeneration and disc bulge with facet arthropathy at L4-L5 resulting in [id number]-kb-[id number] central canal stenosis. Dorsal epidural fat prominence contributes to moderate thecal sac distortion. Facet spurring contacts the exiting right L4 nerve root in the right neural foramen. 2. Moderate facet degeneration and mild disc bulge at L5-S1 with mild epidural fat prominence. Very mild narrowing of the central canal. Facet spurring contacts the exiting left L5 nerve root in the superior left neural foramen. Assessment & Plan Assessment & Plan (1) Chronic right sacroiliac joint pain: Code(s): M53.3 - Sacrococcygeal disorders, not elsewhere classified; G89.29 - Other chronic pain (2) Lumbar spondylosis: Code(s): M47.816 - Spondylosis without myelopathy or radiculopathy, lumbar region (3) Lumbar radiculitis: Code(s): M54.16 - Radiculopathy, lumbar region Plan Multi-factorial low back pain secondary to facet arthritis, vertebral endplate and disc degeneration, dorsal epidural fat thickening, and mild spinal stenosis. She also has an irritation of the right L4 nerve root that could potentially explain her burning symptoms in the toes. Her most concerning symptom at this time is axial low back pain, which is a constant aching sensation that she would like to relieve. We will schedule her for bilateral diagnostic L3-L4 medial branches and L5 dorsal ramus nerve blocks to confirm her facet pain and then consider radiofrequency ablation or PNS for longer-term pain relief. Justification for interventional therapy: Patient with average pain > 6/10 Patient has exhausted conservative therapy including physical therapy and oral medications Patient has a good understanding of her condition and has adequate mental and social support Scribed for Dr. Vallejo by Capo Linares, medical technical writer, on 08/31/2023. I, Dr. Vallejo, have personally reviewed and agree with the information entered by the scribe. Coding Level of Care Code New Pt Level 4 (60373) Diagnoses Chronic right sacroiliac joint pain M53.3; G89.29 Lumbar spondylosis M47.816 Lumbar radiculitis M54.16
[2023-08-31 09:09] VITALS: BP 127/62; PULSE 77; RESP 12; O2SAT 98; BMI 25.6
== END 2023-08-31 09:34 | disposition home or self-care (01) ==
PROVIDERS: PCP Family Medicine; Visit Provider Internal Medicine
DX: M53.3 Sacrococcygeal disorders, not elsewhere classified (principal); G89.29 Other chronic pain; M47.816 Spondylosis without myelopathy or radiculopathy, lumbar region; M54.16 Radiculopathy, lumbar region
CPT/HCPCS: 99204

== ENCOUNTER → 2023-08-31 08:57 | Outpatient (BNVA) | payer OTHER, SELFPAY | PROVIDERS: PCP Family Medicine; Visit Provider Internal Medicine | DX: M53.3 Sacrococcygeal disorders, not elsewhere classified (principal); M47.816 Spondylosis without myelopathy or radiculopathy, lumbar region; M54.16 Radiculopathy, lumbar region; G89.29 Other chronic pain | CPT/HCPCS: 99202 ==

== ENCOUNTER 2023-10-08 06:14 | Outpatient (REF) | payer OTHER, SELFPAY ==
--- NOTE | ~2023-10-08 | FL_ITS ---
EXAMINATION: Intraoperative fluoroscopy CLINICAL INFORMATION: Spondylosis COMPARISON: Lumbar spine MRI 07/28/2023 TECHNIQUE: Intraoperative fluoroscopy was provided for use by Dr. Robles. A total of 3 images were saved to PACS. A radiologist was not present during imaging. Today's dictation is only for administrative purposes to document intraoperative fluoroscopic usage. TOTAL FLUOROSCOPIC TIME: 0.1 minutes DAP: 0.012 mGy-cm FL/FL guidance in treatment room FINDINGS~\^^ Intraoperative fluoroscopy provided for use by Dr. Robles. Please see operative note for detailed findings.
== END 2023-10-08 06:15 | disposition home or self-care (01) ==
LOC: CF 06:14
PROVIDERS: Visit Provider Internal Medicine
DX: M47.816 Spondylosis without myelopathy or radiculopathy, lumbar region (principal)
CPT/HCPCS: 64493; 64494; J2795; Q9967

== ENCOUNTER 2023-10-08 10:49 | Outpatient (AMB) | payer OTHER, SELFPAY ==
--- NOTE | 2023-10-08 11:35 | MHC.OFFVIS ---
Vital Signs 10/08/23 13:01 10/08/23 13:02 Height 5 ft Weight 131 lb BMI 25.6 BP 114/64 120/66 Blood Pressure Location Lt brachial Lt brachial Position Sitting Sitting Respiration 18 16 Pulse 68 76 Pulse Source Pulse Oximeter Pulse Oximeter Pulse Oximetry (%) 99 97 Oxygen Delivery Method Room Air Room Air Comment Pre-Op Post-Op Intake Visit Reasons: Marquis Dx L3-L4-DR-L5 MBB Allergies penicillin G [Penicillin G] Allergy (Intermediate, Verified 08/31/23 09:10) RASH penicillin V Allergy (Intermediate, Verified 08/31/23 09:10) Bleeding seafood Allergy (Severe, Uncoded 08/31/23 09:10) Itching,swelling Shellfish Allergy (Severe, Uncoded 08/31/23 09:10) SOB,HIVES HPI HPI Marquis Dx L3-L4-DR-L5 MBB: Details: Patient presents for scheduled procedure. Denies any recent cough, cold, infection, fever or other significant changes in medical history since last office visit. [facility] Medical History Chest pain Asthma Palpitations Chronic fatigue Scoliosis GERD (gastroesophageal reflux disease) Surgical History H/O: hysterectomy Family History Father Renal failure Mother Alzheimer disease Social History Household Members: Children Alcohol intake: never Current occupational status: retired Physical Exam Vital Signs: Last Vital Signs Pulse 76 10/08/23 13:02 Resp 16 10/08/23 13:02 BP 120/66 10/08/23 13:02 Pulse Ox 97 10/08/23 13:02 Oxygen Delivery Method Room Air 10/08/23 13:02 BMI result Body Mass Index 25.6 Office Procedures Lumbar/Sacral Facet Inj Details: Lumbar Medial Branch Block, Bilateral L3, L4 medial branches and L5 Dorsal Ramus (2 levels, 3 nerves) After obtaining written consent, pre-procedure blood pressure and pulse were recorded and are in the nursing record for review. The patient was placed in a prone position. The respective lumbosacral area was prepped with chloraprep and draped in sterile fashion. The skin over the target medial branch nerves was anesthetized with 0.5% lidocaine. A 22 gauge 3.5 inch needle was inserted into the target medial branch nerve under fluoroscopic guidance. No paresthesias were elicited with needle placement and aspiration was negative for blood and CSF. Next, 0.2cc of omnipaque 180 was injected to verify positioning. Next [10mg of methylprednisone mixed with] 0.5 ml 0.5% bupivicaine was injected (0.5cc total per level). The identical procedure was performed at the remaining levels. The skin was cleansed and a sterile bandage was applied. Following the procedure the patient's vital signs were stable. The patient tolerated the procedure well and no complications were encountered. Following the procedure the patient's vital signs were stable. The patient was discharged home in good condition with post-procedural instructions. Time Out: Immediately prior to the procedure, the following was verbally confirmed that there is a signed consent form and that the correct patient, planned procedure, site and side are consistent with documentation and that necessary equipment and/or blood products are available prior to the start of the case. Complications: none EBL: <5 cc 05710 - second level, with Fluoroscopy (Bilateral) Procedure code (CPT) selection complete Assessment & Plan Assessment & Plan (1) Lumbar spondylosis: Code(s): M47.816 - Spondylosis without myelopathy or radiculopathy, lumbar region Category: Medical Plan Patient is status post bilateral L3, L4 medial branches and L5 dorsal ramus diagnostic nerve blocks. Patient tolerated procedure well and was discharged home in stable condition with discharge instructions. All questions were answered. We will follow-up via telephone or in clinic to assess response to therapy. A follow-up appointment was made during today's visit. Orders: Orders FL guidance in treatment room Today M47.816 - Spondylosis without myelopathy or radiculopathy, lumbar region Coding Level of Care Code Procedure Only Diagnoses Lumbar spondylosis M47.816 CPT Codes Facet Injection-Lumbar/Sacral - CPT: 29324 - second level, with Fluoroscopy ([id number])
[2023-10-08 13:01] VITALS: BP 114/64; PULSE 68; RESP 18; O2SAT 99; BMI 25.6
[2023-10-08 13:02] VITALS: BP 120/66; PULSE 76; RESP 16; O2SAT 97
== END 2023-10-08 13:03 | disposition home or self-care (01) ==
LOC: HO.PMCPRC 10:50
PROVIDERS: PCP Family Medicine; Visit Provider Internal Medicine
DX: M47.816 Spondylosis without myelopathy or radiculopathy, lumbar region (principal)
CPT/HCPCS: 64493; 64494

== ENCOUNTER 2023-10-12 10:33 | Outpatient (AMB) | payer OTHER, SELFPAY ==
--- NOTE | 2023-10-12 10:40 | MHC.OFFVIS ---
Vital Signs 10/12/23 10:41 Height 5 ft Weight 131 lb BMI 25.6 BP 142/64 H Blood Pressure Location Lt brachial Position Sitting Respiration 14 Pulse 76 Pulse Source Pulse Oximeter Pulse Oximetry (%) 97 Oxygen Delivery Method Room Air Intake Visit Reasons: s/p mary Dx L3-L4-DR-L5 MBB Allergies penicillin G [Penicillin G] Allergy (Intermediate, Verified 10/12/23 10:43) RASH penicillin V Allergy (Intermediate, Verified 10/12/23 10:43) Bleeding seafood Allergy (Severe, Uncoded 10/12/23 10:43) Itching,swelling Shellfish Allergy (Severe, Uncoded 10/12/23 10:43) SOB,HIVES Medication List - Last Reconciled 10/12/23 by Aaliyah Yang LPN atenolol 50 mg PO DAILY atorvastatin (Lipitor) 80 mg PO DAILY calcium carbonate-vitamin D3 600 mg-10 mcg (400 unit) 1 tab PO fluticasone propionate 110 mcg/actuation (Flovent HFA) 2 inhalations inhalation BID gabapentin 200 mg PO TID lisinopril 10 mg PO DAILY metformin 1,000 mg PO DAILY mirtazapine 15 mg PO BEDTIME nortriptyline 25 mg PO DAILY omeprazole 20 mg PO DAILY quetiapine 25 mg PO DAILY risperidone 1 mg PO BID sertraline 100 mg PO DAILY HPI HPI s/p mary Dx L3-L4-DR-L5 MBB: Details: 72-year-old female who presents today to the office for a status post bilateral diagnostic L3-L4-DR-L5 MBB. The patient reports 90 % relief following the procedure. She reports right GTB pain today, which is not bothersome this time but flares up from time to time. She was able to get in and out of the car and climb the stairs without pain. She still has mild soreness at the injection site. She has difficulty sleeping on the sides. Past procedures 10/08/23: Lumbar Medial Branch Block, Bilateral L3, L4 medial branches and L5 Dorsal Ramus (2 levels, 3 nerves): 90 % relief. [facility] Medical History Chest pain Asthma Palpitations Chronic fatigue Scoliosis GERD (gastroesophageal reflux disease) Surgical History H/O: hysterectomy Family History Father Renal failure Mother Alzheimer disease Social History Household Members: Children Alcohol intake: never Current occupational status: retired Review of Systems Const All systems reviewed & are unremarkable except as noted in HPI and below Physical Exam Vital Signs: Last Vital Signs Pulse 76 10/12/23 10:41 Resp 14 10/12/23 10:41 BP 142/64 H 10/12/23 10:41 Pulse Ox 97 10/12/23 10:41 Oxygen Delivery Method Room Air 10/12/23 10:41 BMI result Body Mass Index 25.6 General: Appears afebrile. Alert and oriented. Mood and affect appropriate. Follows and participates in conversation appropriately. Respiratory effort is unlabored. Able to transition from sit to stand unassisted. Ambulates with bilaterally normal heel strike and toe off. Results Reviewed Results Reviewed: No imaging is available for review. Assessment & Plan Assessment & Plan (1) Lumbar spondylosis: Code(s): M47.816 - Spondylosis without myelopathy or radiculopathy, lumbar region Category: Medical (2) Bursitis of hip, right: Code(s): M70.71 - Other bursitis of hip, right hip Category: Medical Plan She reports right GTB pain today, which is not bothersome at this time. The patient will reach out to us to schedule an appointment for the right GTB injections for the right GTB pain when it flares up next. If her back pain returns, she will call us to proceed with right L3 medial branch PNS placement.?I went over details of temporary nerve stimulation therapy for low back pain with the patient today. She is amenable to undergoing the therapy and understands the requirements of maintaining the lead. I provided her with an informational brochure as well. Scribed for Dr. Vallejo by Capo Linares, esthetician and manager medical spa, on 10/12/2023. I, Dr. Vallejo, have personally reviewed and agree with the information entered by the scribe. Coding Level of Care Code Est Pt Level 3 (24111) Diagnoses Lumbar spondylosis M47.816 Bursitis of hip, right M70.71
[2023-10-12 10:41] VITALS: BP 142/64; PULSE 76; RESP 14; O2SAT 97; BMI 25.6
== END 2023-10-12 10:53 | disposition home or self-care (01) ==
PROVIDERS: PCP Family Medicine; Visit Provider Internal Medicine
DX: M47.816 Spondylosis without myelopathy or radiculopathy, lumbar region (principal); M70.71 Other bursitis of hip, right hip
CPT/HCPCS: 99213

== ENCOUNTER → 2023-10-12 10:33 | Outpatient (BNVA) | payer OTHER, SELFPAY | PROVIDERS: PCP Family Medicine; Visit Provider Internal Medicine | DX: M47.816 Spondylosis without myelopathy or radiculopathy, lumbar region (principal); M70.71 Other bursitis of hip, right hip | CPT/HCPCS: 99212 ==

== ENCOUNTER 2024-08-24 12:36 | Outpatient (REF) | payer OTHER, SELFPAY ==
[2024-08-24 16:24] LABS: Hematocrit 36.7 % (37.0-47.0); Hemoglobin 12.4 g/dl (12.0-16.0); Mean Corpuscular HGB Conc 33.8 g/dl (31.0-35.0); Mean Corpuscular Hemoglobin 29.8 pg (27.0-33.0); Mean Corpuscular Volume 88.2 fL (80.0-98.0); Mean Platelet Volume 9.3 fL (9.4-12.3); Platelet Count 221 X10*3/uL (160-400); Red Blood Count 4.16 X10*6/uL (4.20-5.50); White Blood Count 5.3 X10*3/uL (4.8-10.8)
[2024-08-24 16:31] LABS: Estimated Average Glucose 117 mg/dL; Hemoglobin A1c % 5.7 % (<6.0)
[2024-08-24 17:19] LABS: Creatinine Urine 107.41 mg/dL; Microalbum/Creatinine Ratio Ur 20.4 ug/mg cr (<30)
[2024-08-24 17:41] LABS: Alanine Aminotransferase 59 U/L (0-31); Albumin Level 4.4 g/dL (3.5-5.0); Alkaline Phosphatase 47 U/L (39-117); Amylase 60 U/L (28-100); Anion Gap 12 (12-20); Aspartate Amino Transferase 39 U/L (5-31); Bilirubin Direct 0.1 mg/dL (0.0-0.5); Bilirubin Total 0.4 mg/dL (0.0-1.0); Blood Urea Nitrogen 11 mg/dL (9-16); Calcium 9.3 mg/dL (8.4-10.2); Carbon Dioxide 29 mmol/L (22-29); Chloride 104 mmol/L (96-108); Cholesterol 122 mg/dL (<200); Estimated Glomerular Filt Rate > 60; Glucose Random 112 mg/dL (60-115); HDL Cholesterol 33 mg/dL (>40); LDL Cholesterol Calculated 54 mg/dL (<100); Lipase 20 U/L (8-78); Potassium 4.3 mmol/L (3.3-5.1); Sodium 141 mmol/L (135-145); Total Protein 7.5 g/dL (6.5-8.0); Triglycerides 175 mg/dL (<150)
[2024-08-24 17:43] LABS: Free T4 (Free Thyroxine) 1.05 ng/dL (0.71-1.85); Thyroid Stimulating Hormone 1.94 uIU/mL (0.32-4.0); Vitamin D 25-OH Total 58.9 ng/mL (>30)
== END 2024-08-24 12:37 | disposition home or self-care (01) ==
LOC: HO.HHCL 12:36
PROVIDERS: Visit Provider Family Medicine
DX: Z00.00 Encounter for general adult medical examination without abnormal findings (principal); E11.9 Type 2 diabetes mellitus without complications; I10 Essential (primary) hypertension; E78.49 Other hyperlipidemia; E11.42 Type 2 diabetes mellitus with diabetic polyneuropathy; F33.9 Major depressive disorder, recurrent, unspecified; R68.89 Other general symptoms and signs; J45.30 Mild persistent asthma, uncomplicated; K21.9 Gastro-esophageal reflux disease without esophagitis; R19.7 Diarrhea, unspecified; M79.7 Fibromyalgia; M54.50 Low back pain, unspecified; G89.29 Other chronic pain; Z12.31 Encounter for screening mammogram for malignant neoplasm of breast
CPT/HCPCS: 36415; 80048; 80061; 80076; 82043; 82150; 82306; 82570; 83036; 83690; 84439; 84443; 85027

== ENCOUNTER 2024-09-02 14:17 | Outpatient (REF) | payer OTHER, SELFPAY | END 2024-09-02 14:18 | disposition home or self-care (01) | LOC: HO.MAMMO 14:17 | PROVIDERS: PCP Family Medicine; Visit Provider Family Medicine | DX: Z12.31 Encounter for screening mammogram for malignant neoplasm of breast (principal) | CPT/HCPCS: 77063; 77067 ==

== ENCOUNTER → 2024-09-02 15:00 | Outpatient (BNV) | payer OTHER, SELFPAY | PROVIDERS: PCP Family Medicine; Visit Provider Internal Medicine | DX: Z12.31 Encounter for screening mammogram for malignant neoplasm of breast (principal) | CPT/HCPCS: 77063; 77067 ==

== ENCOUNTER 2024-09-13 11:04 | Outpatient (REF) | payer OTHER, SELFPAY ==
--- NOTE | ~2024-09-13 | CT_ITS ---
EXAMINATION: CT ABDOMEN AND PELVIS WITH CONTRAST CLINICAL INFORMATION: Abdominal pain and diarrhea. COMPARISON: 03/26/2017. TECHNIQUE: Multidetector volumetric images were obtained from the superior aspect of the liver through the pubic symphysis following administration 85 mL of Omnipaque 350 intravenous contrast. Sagittal and coronal reformatted images were obtained on the technologist's workstation. Oral contrast: No This CT examination was performed using dose optimization techniques as appropriate, variously including the following: *Automated exposure control *Adjustment of mA and/or kV according to patient size (this includes techniques or standardized protocols for targeted exams where dose is matched to indication/reason for exam; i.e. extremities or head) *Use of iterative reconstruction technique FINDINGS: LUNG BASES: Lung bases are clear. No effusions. Small type I hiatus hernia. LIVER, GALLBLADDER, AND BILIARY TREE: The liver is normal in size, shape, and attenuation. No focal hepatic lesion or biliary ductal dilatation is present. The gallbladder is unremarkable with no evidence of radiopaque gallstones, gallbladder wall thickening, or obvious pericholecystic inflammatory changes. PANCREAS: Unremarkable. SPLEEN: Unremarkable. ADRENAL GLANDS: Unremarkable. KIDNEYS AND URETERS: The kidneys are normal in size, shape, and attenuation. No hydronephrosis, hydroureter, or calculi seen. No perinephric stranding. There is a 1.3 cm superior left renal cysts. BLADDER: Unremarkable. GASTROINTESTINAL TRACT: The stomach is decompressed. The duodenum is normal in appearance. The small bowel is normal in caliber and course. The appendix is not visualized. There are no CT features of appendicitis. The colon is normal in course and caliber without wall thickening or inflammation. The rectum is normal. ABDOMINAL WALL: No significant hernia is appreciated. LYMPH NODES: Normal. VASCULAR: There is moderate calcific atheromatous change of the arterial vasculature. There is no aneurysm. PELVIC VISCERA: There is been a hysterectomy. There are no adnexal masses. OSSEOUS STRUCTURES: There are mild spinal degenerative changes present. There is no suspicious cystic or blastic bone lesion evident. There are mild hip joint degenerative changes. CT/CT abdomen pelvis w IV con IMPRESSION: 1. There are no acute findings in the abdomen or pelvis. Electronically signed by: Harvinder Bean MD 09/13/2024 02:10 PM EDT
--- OUTSIDE RECORDS SUMMARY | 2024-09-13 13:30 | XMS_ITS | Encounter Summary ---
Author Organization [employer] Address [address] [place] [address] Care Team Providers Care Bulk Driver Name Role Phone Michell Rogers DO Primary Care Provider + [phone] Reason for Visit * Reason Comments Med Refill Encounter Details Date Type Department Care Team ([facility] st Contact Info) Description 04/09/2023 Refill [facility] [address] [place] [address] Michell Rogers DO [address] [place] [address] Social History Tobacco Use Types Packs/Day Years Used Date Smoking Tobacco: Never Smokeless Tobacco: Never Alcohol Use Standard Drinks/Week Comments Never 0 (1 standard drink = 0.6 oz pur e alcohol) Depression Answer Date Recorded Patient Health Questionnaire-9 Score 17 03/23/2023 Patient Health Questionnaire-9 Score 17 03/23/2023 Last PHQ-9: Questionnaire Data Not on file 1 Housing Stability Answer Date Recorded What is your housing situation today? I have domenic rice 03/23/[address] you li ve. Do you have problems with any of the following? None of the above 03/23/2023 Food Insecurity Answer Date Recorded Within the past 12 months, y ou worried that your food would run out before you got money to buy more: Never True 03/23/2023 Within the past 12 months,th e food you bought just didn't last and you didn't have enough money to get more: Never True Transportation Answer Date Recorded In the past 12 months, has l ack of transportation kept you from medical appts, meetings, work or from getting things needed for daily living? No 03/23/2023 Utilities Answer Date Recorded In the past 12 months, has t he electric, gas, oil or water company threatened to shut off services in your home? No 03/23/2023 Depression Answer Date Recorded Patient Health Questionnaire-2 Score 5 03/23/2023 Comments Unknown Sex and Gender Information Value Date Recorded Sex Assigned at Female 04/07/2022 10:17 AM EDT Legal Sex Female 10:17 AM EDT Gender Identity Female 04/07/2022 10:17 AM EDT Sexual Orientation Straight 04/07/2022 10 :17 AM EDT documented as of this encounter Plan of Treatment Not on file documented as of this encounter Visit Diagnoses Not on filedocumented in this encounter Additional Health Concerns Assessment Noted Time PHQ-9 Depression Total Score: 17 023 11:24 AM EDT documented as of this encounter Care Teams Bulk Driver Relationship Specialty Start Date End Date Michell Rogers DO [address] [place] [id number] PCP - General Family Medicine 02/19/15 documented as of this encounter
--- OUTSIDE RECORDS SUMMARY | 2024-09-13 13:30 | XMS_ITS | Clinical Summary ---
Author Organization [email or web address] Address [address] [place] [address] Care Team Providers Care Dog Groomer Name Role Phone Michell Rogers DO Primary Care Provider [phone] Allergies Active Allergy Reactions Criticality Noted Date Comments Dicyclomine Itching 05/30/2019 Penicillin G 01/05/2012 Shellfish-Derived Products 2 Medications hydrOXYzine HCl (Atarax) 25 MG tablet Take 1 tablet by mouth if needed each day for anxiety. 09/25/19 22 Active albuterol 108 (90 Base) MCG/ACT inhaler Inhale 2 puffs every 4 (four) hours if needed. 12/25/19 21 Active acetaminophen (Tylenol 8 Hour) 650 MG ER tablet Take 1 tablet by mouth every 8 (eight) hours if needed for pain or fever. 09/19/19 20 Active glucose blood (FREESTYLE LITE) test strip 1 (one) time each day. 01/27/20 19 Active polyvinyl alcohol (Liquifilm Tears) 1.4 % ophthalmic solution Administer 1 drop into both eyes in the morning, at noon, and at bedtime. 02/16/20 18 Active simethicone (Mylicon) 125 MG chewable tablet Chew 1 tablet in the morning, at noon, in the evening, and at bedtime. Active sertraline (Zoloft) 100 MG tablet Take 2 tablets by mouth 1 (one) time each day. Active QUEtiapine (SEROquel) 25 MG tablet Take 1 tablet by mouth 1 (one) time each day. Active risperiDONE (RisperDAL) 1 MG tablet Take 1 tablet by mouth in the morning and at bedtime. Active mirtazapine (Remeron) 15 MG tablet Take 1 tablet by mouth at bed time. Active clonazePAM (KlonoPIN) 0.5 MG tablet Take 1 tablet by mouth in the morning and at bedtime. Active Biotin 1000 MCG chewable tablet Patient buys OTC Active Blood Pressure kit Use as directed Active Blood Glucose Monitoring Suppl (FreeStyle glucose monitoring) kit 1 each in the morning. Active FreeStyle lancets 1 each by Other route in the morning. Use as instructed Active Diclofenac Sodium 1 % gel Apply 2 g topically if needed in the morning, at noon, in the evening, and at bedtime (pain). 150 g 3 03/23/20 23 Active fluticasone (Flonase) 50 MCG/ACT nasal spray INHALE 2 SPRAYS IN EACH NOSTRIL ONCE DAILY IN THE MORNING 16 g 5 07/30/19 24 Active loratadine (Claritin) 10 MG tablet TAKE 1 TABLET BY MOUTH EVERY MORNING 30 tablet 5 07/30/19 24 Active metFORMIN (Glucophage) 500 MG tabletIndicatio ns:Type 2 diabetes mellitus with other specified complication, unspecified whether terminologist insulin use (CMS/HCC) TAKE 1 TABLET BY MOUTH EVERY EVENING WITH DINNER 90 tablet 1 05/10/20 24 Active fluticasone furoate (Arnuity Ellipta) 100 MCG/ACT inhaler INHALE 1 PUFF BY MOUTH IN THE MORNING RINSE MOUTH AFTER USING. 1 each 07/15/19 25 Active atenolol (Tenormin) 50 MG tablet TAKE 1 TABLET BY MOUTH EVERY MORNING 90 tablet 1 08/03/19 25 Active atorvastatin (Lipitor) 80 MG tablet TAKE 1 TABLET BY MOUTH EVERY MORNING 90 tablet 1 08/03/19 25 Active omeprazole (PriLOSEC) [address] capsule TAKE 1 CAPSULE BY MOUTH TWICE DAILY IN THE MORNING AND IN THE EVENING BEFORE MEALS 180 capsule 08/03/19 25 Active gabapentin (Neurontin) 100 MG capsuleIndicati ons:Other chronic pain TAKE 1 CAPSULE BY MOUTH THREE TIMES DAILY IN THE MORNING, EVENING, AND BEDTIME 90 capsule 1 09/03/19 25 Active nortriptyline (Pamelor) 25 MG capsule TAKE 1 CAPSULE BY MOUTH AT BEDTIME 30 capsule 5 09/03/19 25 Active Calcium Carb-Cholecalci ferol 600-10 MG-MCG tablet TAKE 1 TABLET BY MOUTH TWICE DAILY IN THE MORNING AND IN THE EVENING 180 tablet 1 09/07/19 25 Active lisinopril 10 MG tablet TAKE 1 TABLET BY MOUTH EVERY MORNING 90 tablet 1 09/07/19 25 Active nortriptyline (Pamelor) 25 MG capsule TAKE 1 CAPSULE BY MOUTH AT BEDTIME 30 capsule 5 03/09/20 24 025 Discontinued Calcium Carb-Cholecalci ferol 600-10 MG-MCG tablet TAKE 1 TABLET BY MOUTH TWICE DAILY IN THE MORNING AND IN THE EVENING 180 tablet 1 03/15/20 24 025 Discontinued lisinopril 10 MG tablet TAKE 1 TABLET BY MOUTH EVERY MORNING 90 tablet 1 03/15/20 24 025 Discontinued gabapentin (Neurontin) 100 MG capsuleIndicati ons:Other chronic pain TAKE 1 CAPSULE THREE TIMES DAILY IN THE MORNING, EVENING, AND BEDTIME 90 capsule 1 07/14/19 25 025 Discontinued loperamide (Imodium A-D) 2 MG tablet Take 1 tablet (2 mg) by mouth if needed in the morning, at noon, in the evening, and at bedtime for diarrhea for up to 10 days. 30 tablet 08/25/19 25 025 Active Problems Problem Noted Date Diagnosed Date Chronic right hip pain 10/06/2023 Chronic bilateral low back pain 10/06/2023 Diabetic polyneuropathy 03/23/2023 BMI 25.0-25.9,adult 03/23/2023 Mild persistent asthma 05/19/2022 Fibromyalgia 05/19/2022 Anxiety 06/19/2015 Essential hypertension 06/19/2015 Chronic gastroesophageal reflux disease 06/19/19 16 Hyperlipidemia 06/19/2015 Osteoarthritis 06/19/2015 Major depression, recurrent, chronic 06/19/2015 Type 2 diabetes mellitus 06/19/2015 Vitamin D deficiency 06/19/2015 Resolved Problems Problem Noted Date Diagnosed Date Resolved Date Fibromyositis 06/19/2015 05/19/2022 Mild intermittent asthma 06/19/201505/2022 Encounters Date Type Department Care Team Description 09/04/2024 Refill [facility] [address] [place] [address] Michell Rogers DO 09/02/2024 Refill [facility] [address] [place] [address] Michell Rogers DO Other chronic pain 08/24/2024 10:45 AM EDT Office Visit [facility] [address] [place] [address] Michell Rogers, Type 2 diabetes mellitus without complication, without long-term current use of insulin ([facility]) (Primary Dx); Essential hypertension; Other hyperlipidemia; Diabetic polyneuropathy associated with type 2 diabetes mellitus (CMS/HCC); Major depression, recurrent, chronic (CMS/HCC); Forgetfulness; Mild persistent asthma without complication; Chronic gastroesophageal reflux disease; Diarrhea, unspecified type; Fibromyalgia; Chronic bilateral low back pain, unspecified whether sciatica present; Healthcare maintenance; Encounter for screening mammogram for malignant neoplasm of breast; Encounter for immunization 08/24/2024 Travel 08/03/2024 Refill [facility] [address] [place] [address] Michell Rogers DO 07/14/2024 Refill [facility] [address] [place] [address] Michell Rogers DO Other chronic pain 07/11/2024 Telephone [facility] [address] [place] [address] Lissette Lopez, OD 07/11/2024 Refill [facility] [address] [place] [address] Michell Rogers, Other chronic pain 07/07/2024 Telephone [facility] [address] [place] [address] Linda Ibarra MA Recall Appt. 07/07/2024 Travel 06/20/2024 9:30 AM EST Office Visit [facility] [address] [place] [address] Lissette Lopez, OD Diabetes type 2, no ocular involvement ([facility]) (Primary Dx); Nevus of eyelid; Blepharitis, unspecified laterality, unspecified type; Pseudophakia of both eyes; Presbyopia 06/20/2024 Travel from Last 3 Months Immunizations Name Administration Dates Next Due Hep B, adult 06/19/2015,01/25/2015,12/22/2014 Influenza High-dose Quadriva lent Preservative Free 03/23/2023,04/04/2022 Influenza Injectable Quadriv alant Preservative Free IIV4 MDCK 04/06/2020 Influenza injectable quadriv alent IIV4 with preservative 03/04/2017,03/04/2016,03/21/2015 Influenza injectable quadriv alent preservative free 05/14/2021 Influenza, High Dose Seasona l, Preservative Free 04/11/2019,04/06/2018 Influenza, IIV3, injectable 04/03/2014, 1 Influenza, Split (incl. mary f[place] surface antigen) 03/07/2013,02/20/2012 Influenza, seasonal, injecta ble, preservative free 08/24/2024 Moderna Covid-19 Vaccine 12+ 09/24/2021, 05/14/2021,08/23/2020,07/26 Pfizer Covid-19 Vaccine 12+ 08/24/2024, 3 Pfizer Covid-19 Vaccine 12+ Bivalent 04/04/2022 Pneumococcal Conjugate PCV 13 03/04/2017 Pneumococcal Polysaccharide PPSV23 04/06/2020, RSV Bivalent 01/12/2024 TD (adult), 2 Lf tetanus tox oid, preservative free, adsorbed 03/08/2009 Tdap 09/14/2015 Zoster, Recombinant 07/02/2020,04/06/2020 Zoster, live 12/22/2014 Family History Medical History Relation Name Comments Autism Brother Hypertension Brother Stomach cancer Father Blindness Maternal Grandmother Alzheimer's disease Mother Coronary artery disease Mother Diabetes Mother Mental illness Mother Breast cancer Mother's Sister Asthma Sister Coronary artery disease Sister Diabetes Sister Relation Name Status Comments Brother Father Maternal Grandmother Mother Mother's Sister Sister Social History Tobacco Use Types Packs/Day Years Used Date Smoking Tobacco: Never Smokeless Tobacco: Never Tobacco Cessation:Counseling Given: Not Answered Alcohol Use Standard Drinks/Week Comments Never 0 (1 standard drink = 0.6 oz pur e alcohol) Depression Answer Date Recorded Patient Health Questionnaire-9 Score 11 08/24/2024 Patient Health Questionnaire-9 Score 11 08/24/2024 Last PHQ-9: Questionnaire Data Not on file 0 08/24/2024 Housing Stability Answer Date Recorded What is your housing situation today? I have domenic rice 03/23/[address] you li ve. Do you have problems with any of the following? None of the above 03/23/2023 Food Insecurity Answer Date Recorded Within the past 12 months, y ou worried that your food would run out before you got money to buy more: Sometimes True 2024 Within the past 12 months,th e food you bought just didn't last and you didn't have enough money to get more: Sometimes True 08/24/2024 Transportation Answer Date Recorded In the past [...] Answer Date Recorded Patient Health Questionnaire-2 Score 2 08/24/2024 Internet Access Answer Date Recorded Internet Access Q1 No 08/24/2024 Internet Access Q2 I cannot afford it 08/24/2024 Comments No Sex and Gender Information Value Date Recorded Sex Assigned at Female 04/07/2022 10:17 AM EDT Legal Sex Female 10:17 AM EDT Gender Identity Female 04/07/2022 10:17 AM EDT Sexual Orientation Straight 04/07/2022 10 :17 AM EDT Last Filed Vital Signs Vital Sign Reading Time Taken Comments Blood Pressure 134/78 08/24/2024 11:26 AM EDT Pulse 72 08/24/2024 11:26 AM EDT Temperature 36.1 ??C (97 ??F) 08/24/2024 11:26 AM EDT Respiratory Rate 21 08/24/2024 11:26 AM EDT Oxygen Saturation 98% 08/24/2024 11:26 AM EDT Inhaled Oxygen Concentration - - Weight 59.9 kg (132 lb) 08/24/2024 11:26 AM EDT Height 152.4 cm (5') 08/24/2024 11:26 AM EDT Body Mass Index 25.78 08/24/2024 11:26 AM EDT Plan of Treatment Health Maintenance Due Date Last Done Comments CT Colonography 1950 Colonoscopy 1950 Colorectal Cancer Screening 1950 FIT DNA/Cologuard 1950 FIT 1950 FOBT 1950 Sigmoidoscopy 1950 Diabetes: Foot Exam 11/29/1961 Alcohol/Substance Use Screening 1963 Hepatitis C Screening 11/29/1969 Depression Monitoring (PHQ-9) 02/24/2025 08/24/2024, 08/24/2024 Diabetes: Hemoglobin A1C 02/24/2025 025, 08/24/2024, 01/11/2024, Additional history exists Depression Screening 08/24/2025 08/24/2024, 08/25/19 25 Diabetes: Urine Protein Screening 08/24/2025 08/24/2024, 04/23/2023, 05/14/2021, Additional history exists Lipid Panel 08/24/2025 08/24/2024, 04/08, 05/28/2022, Additional history exists SDOH Screening 08/24/2025 08/24/2024 Tobacco Screening 08/24/2025 08/24/2024 Mammogram 09/02/2025 09/02/2024, 07/09, 07/22/2022, Additional history exists DTaP/Tdap/Td Vaccines (2 - Td or Tdap) 09/13/2025 09/14/2015, 03/08/2009 Eye Exam 06/20/2026 06/20/2024, 06/08, 06/20/2024, Additional history exists Hepatitis B Vaccines Completed 06/19/2015, 01/25/2015, 12/22/2014 Pneumococcal Vaccine: 50+ Years Completed 04/06/2020, 03/04/2017, 05/24/2014 Zoster Vaccines Completed 07/02/2020, 03/10, 12/22/2014 RSV Patients and Patients Aged 60 years or older Completed 01/12/2024 COVID-19 Vaccine Completed 08/24/2024, , 04/04/2022, Additional history exists Influenza Vaccine Completed 08/24/2024, , 04/04/2022, Additional history exists HIB Vaccines Aged Out No longer eligi ble based on patient's age to complete this topic HPV Vaccines Aged Out No longer eligi ble based on patient's age to complete this topic Hepatitis A Vaccines Aged Out No long er eligible based on patient's age to complete this topic IPV Vaccines Aged Out No longer eligi ble based on patient's age to complete this topic Meningococcal Vaccine Aged Out No abdoulaye uma eligible based on patient's age to complete this topic RSV under 20 months Aged Out No longe r eligible based on patient's age to complete this topic Rotavirus Vaccines Aged Out No longer eligible based on patient's age to complete this topic Procedures Procedure Name Priority Date/Time Associated Diagnosis Comments BI MAMMOGRAM SCREENING TOMOSYNTHESIS BILATERAL Routine 09/02/2024 2:21 PM EDT Encounter for screening mammogram for malignant neoplasm of breast LIPASE Routine 08/24/2024 12:40 PM EDT Type 2 diabetes mellitus without complication, without long-term current use of insulin (CMS/HCC) Essential hypertension Other hyperlipidemia Diabetic polyneuropathy associated with type 2 diabetes mellitus (CMS/HCC) Major depression, recurrent, chronic (CMS/HCC) Forgetfulness Mild persistent asthma without complication Chronic gastroesophageal reflux disease Diarrhea, unspecified type Fibromyalgia Chronic bilateral low back pain, unspecified whether sciatica present Healthcare maintenance Encounter for screening mammogram for malignant neoplasm of breast AMYLASE Routine 08/24/2024 12:40 PM EDT Type 2 diabetes mellitus without complication, without long-term current use of insulin (CMS/HCC) Essential hypertension Other hyperlipidemia Diabetic polyneuropathy associated with type 2 diabetes mellitus (CMS/HCC) Major depression, recurrent, chronic (CMS/HCC) Forgetfulness Mild persistent asthma without complication Chronic gastroesophageal reflux disease Diarrhea, unspecified type Fibromyalgia Chronic bilateral low back pain, unspecified whether sciatica present Healthcare maintenance Encounter for screening mammogram for malignant neoplasm of breast ALBUMIN, RANDOM URINE W/CREATININE Routine 08/24/2024 12:40 PM EDT Type 2 diabetes mellitus without complication, without long-term current use of insulin (CMS/HCC) Essential hypertension Other hyperlipidemia Diabetic polyneuropathy associated with type 2 diabetes mellitus (CMS/HCC) Major depression, recurrent, chronic (CMS/HCC) Forgetfulness Mild persistent asthma without complication Chronic gastroesophageal reflux disease Diarrhea, unspecified type Fibromyalgia Chronic bilateral low back pain, unspecified whether sciatica present Healthcare maintenance Encounter for screening mammogram for malignant neoplasm of breast CBC Routine 08/24/2024 12:40 PM EDT Type 2 diabetes mellitus without complication, without long-term current use of insulin (CMS/HCC) Essential hypertension Other hyperlipidemia Diabetic polyneuropathy associated with type 2 diabetes mellitus (CMS/HCC) Major depression, recurrent, chronic (CMS/HCC) Forgetfulness Mild persistent asthma without complication Chronic gastroesophageal reflux disease Diarrhea, unspecified type Fibromyalgia Chronic bilateral low back pain, unspecified whether sciatica present Healthcare maintenance Encounter for screening mammogram for malignant neoplasm of breast BASIC METABOLIC PANEL Routine 08/24/2024 12:40 PM EDT Type 2 diabetes mellitus without complication, without long-term current use of insulin (CMS/HCC) Essential hypertension Other hyperlipidemia Diabetic polyneuropathy associated with type 2 diabetes mellitus (CMS/HCC) Major depression, recurrent, chronic (CMS/HCC) Forgetfulness Mild persistent asthma without complication Chronic gastroesophageal reflux disease Diarrhea, unspecified type Fibromyalgia Chronic bilateral low back pain, unspecified whether sciatica present Healthcare maintenance Encounter for screening mammogram for malignant neoplasm of breast HEMOGLOBIN A1C Routine 08/24/2024 12:40 PM EDT Type 2 diabetes mellitus without complication, without long-term current use of insulin (CMS/HCC) Essential hypertension Other hyperlipidemia Diabetic polyneuropathy associated with type 2 diabetes mellitus (CMS/HCC) Major depression, recurrent, chronic (CMS/HCC) Forgetfulness Mild persistent asthma without complication Chronic gastroesophageal reflux disease Diarrhea, unspecified type Fibromyalgia Chronic bilateral low back pain, unspecified whether sciatica present Healthcare maintenance Encounter for screening mammogram for malignant neoplasm of breast HEPATIC FUNCTION PANEL Routine 08/24/2024 12:40 PM EDT Type 2 diabetes mellitus without complication, without long-term current use of insulin (CMS/HCC) Essential hypertension Other hyperlipidemia Diabetic polyneuropathy associated with type 2 diabetes mellitus (CMS/HCC) Major depression, recurrent, chronic (CMS/HCC) Forgetfulness Mild persistent asthma without complication Chronic gastroesophageal reflux disease Diarrhea, unspecified type Fibromyalgia Chronic bilateral low back pain, unspecified whether sciatica present Healthcare maintenance Encounter for screening mammogram for malignant neoplasm of breast TSH Routine 08/24/2024 12:40 PM EDT Type 2 diabetes mellitus without complication, without long-term current use of insulin (CMS/HCC) Essential hypertension Other hyperlipidemia Diabetic polyneuropathy associated with type 2 diabetes mellitus (CMS/HCC) Major depression, recurrent, chronic (CMS/HCC) Forgetfulness Mild persistent asthma without complication Chronic gastroesophageal reflux disease Diarrhea, unspecified type Fibromyalgia Chronic bilateral low back pain, unspecified whether sciatica present Healthcare maintenance Encounter for screening mammogram for malignant neoplasm of breast LIPID PANEL, STANDARD Routine 08/24/2024 12:40 PM EDT Type 2 diabetes mellitus without complication, without long-term current use of insulin (CMS/HCC) Essential hypertension Other hyperlipidemia Diabetic polyneuropathy associated with type 2 diabetes mellitus (CMS/HCC) Major depression, recurrent, chronic (CMS/HCC) Forgetfulness Mild persistent asthma without complication Chronic gastroesophageal reflux disease Diarrhea, unspecified type Fibromyalgia Chronic bilateral low back pain, unspecified whether sciatica present Healthcare maintenance Encounter for screening mammogram for malignant neoplasm of breast VITAMIN D,25-OH,TOTAL,IA Routine 08/24/2024 12:40 PM EDT Type 2 diabetes mellitus without complication, without long-term current use of insulin (CMS/HCC) Essential hypertension Other hyperlipidemia Diabetic polyneuropathy associated with type 2 diabetes mellitus (CMS/HCC) Major depression, recurrent, chronic (CMS/HCC) Forgetfulness Mild persistent asthma without complication Chronic gastroesophageal reflux disease Diarrhea, unspecified type Fibromyalgia Chronic bilateral low back pain, unspecified whether sciatica present Healthcare maintenance Encounter for screening mammogram for malignant neoplasm of breast T4, FREE Routine 08/24/2024 12:40 PM EDT Type 2 diabetes mellitus without complication, without long-term current use of insulin (CMS/HCC) Essential hypertension Other hyperlipidemia Diabetic polyneuropathy associated with type 2 diabetes mellitus (CMS/HCC) Major depression, recurrent, chronic (CMS/HCC) Forgetfulness Mild persistent asthma without complication Chronic gastroesophageal reflux disease Diarrhea, unspecified type Fibromyalgia Chronic bilateral low back pain, unspecified whether sciatica present Healthcare maintenance Encounter for screening mammogram for malignant neoplasm of breast POCT GLYCATED HEMOGLOBIN, TOTAL Routine 08/24/2024 11:31 AM EDT Type 2 diabetes mellitus without complication, without long-term current use of insulin (CMS/HCC) POCT GLUCOSE Routine 08/24/2024 11:31 AM EDT Type 2 diabetes mellitus without complication, without long-term current use of insulin (CMS/HCC) EXTERNAL PHOTOGRAPHY - OS - LEFT EYE Routine 06/20/2024 9:30 AM EST Nevus of eyelid from Last 3 Months Results * BI Mammogram Screening Tomosynthesis Bilateral (09/02/2024 2:21 PM EDT) Anatomical Region Laterality Modality Breast Bilateral Mammography 09/02/2024 2:21 PM EDT Narrative 09/10/2024 3:04 PM EDT ? [facility] [place] ? [address] ?[place] [address] ?[phone] ? Mammography Report ? Signed ? Patient: Sanchez Cano,Janessa ?MR#: [id number] ?? [id number] ? : 1950 ?Acct:[id number] ? Age/Sex: 73 / F ?ADM Date: /28/25 ? Loc: HO.MAMMO ? Attending Dr: Michell Rogers DO ? Ordering Physician: Michell Rogers DO ?Results: 2B ?? enign Findings ? Date of Service: //25 ?Follow Up: 1 Year From Orig ?? inal Mammogram ? Procedure(s): MM tomosynthesis screening BI ?? Accession Number(s): [id number] ? cc: Michell Rogers DO ? EXAMINATION: ?? MM SCREENING DIGITAL BREAST TOMOSYNTHESIS, BILATERAL ? CLINICAL INFORMATION: ? Screening. Asymptomatic. ? COMPARISON: ?? Mammography: Comparison is made with available priors ? TECHNIQUE: ?? Digital breast mammography with tomosynthesis is performed in both the ?? craniocaudal and mediolateral oblique views along with computer-aided ?? detection (CAD). ? FINDINGS: ?? There are scattered areas of fibroglandular density (ACR BI-RADS breast ?? composition Category b). ?? Left marker clip. ?? There are no significant masses, abnormal calcifications, or other ?? abnormalities. ? MM/MM tomosynthesis screening BI ?? IMPRESSION: ?? No mammographic evidence of malignancy. ? ASSESSMENT: ? BI-RADS BI-RADS 2 - Benign Findings ? RECOMMENDATION: ?? Routine annual mammography screening. ? 1 year F/U ? This examination should not preclude the clinical evaluation of a ?? suspicious palpable abnormality. ? This patient's information was entered into a reminder system with a ?? target due date for their next mammogram. ? Electronically signed by: ??Bekah Borja DO ??09/10/2024 03:01 PM EDT ? Dictated By: ?Bekah Borja DO ? Signed By: ?<Electronically signed by Bekah Borja, DO in OV> ? 09/10/24 1501 ? DD/ 1421 ? TD/TT: 09/02/24 1438 ? Programming Equipment Operator: ? Procedure Note Philip Palma - 09/10/2024 [facility] [address] [place], [place] [address] Mammography Report Signed Patient: Daniel Eri Cano#: M [id number] : 2Acct:[id number] Age/Sex: 73 / FADM Date: 09/02/24 Loc: HO.MAMMO Attending Dr: Michell Rogers DO Ordering Physician: Michell Rogersults: 2B enign Findings Date of Service: 09/02/24Follow Up: 1 Year From [facility] Mammogram Procedure(s): MM tomosynthesis screening BI Accession Number(s): [id number] cc: Michell Rogers DO EXAMINATION: MM SCREENING DIGITAL BREAST TOMOSYNTHESIS, BILATERAL CLINICAL INFORMATION: Screening. Asymptomatic. COMPARISON: Mammography: Comparison is made with available priors TECHNIQUE: Digital breast mammography with tomosynthesis is performed in both the craniocaudal and mediolateral oblique views along with computer-aided detection (CAD). FINDINGS: There are scattered areas of fibroglandular density (ACR BI-RADS breast composition Category b). Left marker clip. There are no significant masses, abnormal calcifications, or other abnormalities. MM/MM tomosynthesis screening BI IMPRESSION: No mammographic evidence of malignancy. ASSESSMENT: BI-RADS BI-RADS 2 - Benign Findings RECOMMENDATION: Routine annual mammography screening. 1 year F/U This examination should not preclude the clinical evaluation of a suspicious palpable abnormality. This patient's information was entered into a reminder system with a target due date for their next mammogram. Electronically signed by: Bekah Borja DO 09/10/2024 03:01 PM EDT Dictated By: Bekah Borja DO Signed By: <Electronically signed by Bekah Borja DO in OV> 09/10/24 1501 DD/ 1421 TD/TT: 09/02/24 1438 Programming Equipment Operator: Michell Rogers DO [facility] BI PROCEDURES Edited Res ult - Final * Vitamin D, 25-Hydroxy, Total, Immunoassay (08/24/2024 12:40 PM EDT) Vitamin D 25-OH Total 58.9 >30 ng/mL [facility] Comment: Health Based Reference Values*< 20 ??ng/mL ??Ffutgluye81-80 ng/mL ??Insufficient> 30 ??ng/mL ??Sufficient*Camille ROLDAN. N Engl J Med. 2007;357:[id number] is no well-established upper level of normal vitamin Dlevels. Some laboratories use 50 ng/mL as an upper limit ofnormal. However, toxicity is patient-dependent and may occurat any level. Careful correlation with the patient'spresentation is necessary and, if there is concern forvitamin D toxicity, treatment should be consideredirrespective of the serum level.Care must be taken in interpreting Vitamin D results fromdifferent laboratories and methodologies. ??Published datademonstrated that results from patients undergoinghemodialysis may show a negative bias when tested withvarious automated 25-OH vitamin D assays when compared toLC- MS/MS.When testing samples from patients whose predominant form ofVitamin D is Vitamin D2, such as patients receiving VitaminD2 supplementation, results that are subtherapeutic shouldbe confirmed with another method such as LC-MS/MS. Blood Venous blood specimen / Unknown 08/24/2024 12:40 PM EDT 08/24/2024 4:07 PM EDT us Michell Rogers DO LAB BLOOD ORDERABLES Final R esult [facility] [address] [place] [phone] * Albumin, Random Urine W/Creatinine (08/24/2024 12:40 PM EDT) Creatinine, Urine 107.41 mg/dL [facility] Microalbumin Urine 22.0 mg/L [facility] Microalbum Creatinine Ratio Ur 20.4 <30 ug/mg cr [facility] Comment:Albumin/Creatinine R atio Reference Ranges: Normal: < 30 ug/mg creatinine Microalbuminuria: 30 - 300 ug/mg creatinineClinical Albuminuria: > 300 ug/mg creatinine Urine (Urine, Random) 08/24/2024 12:40 PM EDT 08/24/2024 4:18 PM EDT Michell Rogers DO LAB URINE ORDERABLES Final R esult Performing Organization Address City/[facility]/ZIP Co de Phone Number [facility] [address] [place] [phone] * (ABNORMAL) CBC (08/24/2024 12:40 PM EDT) White Blood Count 5.3 4.8 - 10.8 X10*3/uL [facility] Red Blood Count 4.16(L) 4.20 - 5.50 X10*6/uL [facility] Hemoglobin 12.4 12.0 - 16.0 g/dl [facility] Hematocrit 36.7(L) 37.0 - 47.0 % [facility] Mean Corpuscular Volume 88.2 80.0 - 98.0 fL [facility] Mean Corpuscular Hemoglobin 29.8 27.0 - 33.0 pg [facility] Mean Corpuscular HGB Conc 33.8 31.0 - 35.0 g/dl [facility] Red Cell Distribution Width 12.0 11.0 - 16.0 % [facility] Platelet Count 221 160 - 400 X10*3/uL [facility] Mean Platelet Volume 9.3(L) 9.4 - 12.3 fL [facility] NRBC Pct Auto 0.0 0.0 - 0.2 /100WBC [facility] NRBC Abs Auto 0.000 0.0 - 0.012 X10*3/uL [facility] Blood Venous blood specimen / Unknown 08/24/2024 12:40 PM EDT 08/24/2024 4:07 PM EDT Michell Rogers DO LAB BLOOD ORDERABLES Final R esult Performing Organization Address City/[facility]/ZIP Co de Phone Number [facility] [address] [place] [phone] * TSH (08/24/2024 12:40 PM EDT) Pathologist [facility] Thyroid Stimulating Hormone 1.94 0.32 - 4.0 uIU/mL [facility] Comment:TSH 3rd Generation ( [facility]) Blood Venous blood specimen / Unknown 08/24/2024 12:40 PM EDT 08/24/2024 4:07 PM EDT Michell Rogres DO LAB BLOOD ORDERABLES Final R esult [facility] [address] [place] [phone] * T4, Free (08/24/2024 12:40 PM EDT) [facility] Free T4 (Free Thyroxine) 1.05 0.71 - 1.85 ng/dL [facility] Blood Venous blood specimen / Unknown 08/24/2024 12:40 PM EDT 08/24/2024 4:07 PM EDT Michell Rogers DO LAB BLOOD ORDERABLES Final R esult Performing Organization Address City/[facility]/ZIP Co de Phone Number [facility] [address] [place] [phone] * Lipase (08/24/2024 12:40 PM EDT) [facility] Lipase 20 8 - 78 U/L [facility] Blood Venous blood specimen / Unknown 08/24/2024 12:40 PM EDT 08/24/2024 4:07 PM EDT Michell Rogers DO LAB BLOOD ORDERABLES Final R esult Performing Organization Address City/[facility]/ZIP Co de Phone Number [facility] [address] [place] [phone] * Hemoglobin A1c (08/24/2024 12:40 PM EDT) Hemoglobin A1c 5.7 <6.0 % [facility] Comment:Hemoglobin A1C Refer ence Range Adults: 4.8 - 6.0 % Non diabetic: < 6.0 % Goal: < 7.0 %Additional Action Suggested: > 8.0 %Note: Hemoglobin A1c results are invalid for patients with abnormal amounts of HbF. Blood transfusions may impact the HbA1c concentration in the patient sample. Estimated Average Glucose 117 mg/dL [facility] Comment:eAG = Estimated ave rage glucose which is %A1C expressed asaverage glucose, using the formula of the [id number] Glucose study (ADAG), Diabetes Care, Vol.31,#8,2007 Blood Venous blood specimen / Unknown 08/24/2024 12:40 PM EDT 08/24/2024 4:07 PM EDT Michell Rogers LAB BLOOD ORDERABLES Final R esult Performing Organization Address City/[facility]/ZIP Co de Phone Number [facility] [address] [place] [phone] * Amylase (08/24/2024 12:40 PM EDT) Pathologist [facility] Amylase 60 28 - 100 U/L [facility] Blood Venous blood specimen / Unknown 08/24/2024 12:40 PM EDT 08/24/2024 4:07 PM EDT [facility] BLOOD ORDERABLES Final R esult [facility] [address] [place] [phone] * (ABNORMAL) Hepatic Function Panel (08/24/2024 12:40 PM EDT) Bilirubin, Total 0.4 0.0 - 1.0 mg/dL [facility] Bilirubin, Direct 0.1 0.0 - 0.5 mg/dL [facility] Aspartate Amino Transferase 39(H) 5 - 31 U/L [facility] Alanine Aminotransferase 59(H) 0 - 31 U/L [facility] Total Protein 7.5 6.5 - 8.0 g/dL [facility] Albumin Level 4.4 3.5 - 5.0 g/dL [facility] Alkaline Phosphatase 47 39 - 117 U/L [facility] Blood Venous blood specimen / Unknown 08/24/2024 12:40 PM EDT 08/24/2024 4:07 PM EDT us Michell Rogers DO LAB BLOOD ORDERABLES Final R esult [facility] [address] [place] [phone] * (ABNORMAL) Lipid Panel, Standard (08/24/2024 12:40 PM EDT) Triglycerides 175(H) <150 mg/dL [facility] Comment:Desirable Triglyceri de: less than 150 mg/dLBorderline High Triglyceride 150-199 mg/dLHigh Triglyceride: 200-499 mg/dLVery High Triglyceride: greater than or equal to 5OO mg/dL Cholesterol 122 <200 mg/dL [facility] Comment:Desirable Cholestero l: less than 200 mg/dLBorderline High Cholesterol: 200-239 mg/dLHigh Cholesterol: greater than 239 mg/dL LDL Cholesterol Calculated 54 <100 mg/dL [facility] Comment:Desirable LDL: less than 100 mg/dLNear Optimal/Above Optimal LDL: 110- 129 mg/dLBorderline High LDL: 130-159 mg/dLHigh LDL: 160-189 mg/dLVery High LDL: greater than or equal to 190 mg/dL HDL Cholesterol 33(L) >40 mg/dL [facility] Comment:Desirable HDL: great er than 40 mg/dL Note: This HDL assay may give artificially low results in patients with liver disease. Blood Venous blood specimen / Unknown 08/24/2024 12:40 PM EDT 08/24/2024 4:07 PM EDT Michell Rogers DO LAB BLOOD ORDERABLES Final R esult Performing Organization Address City/[facility] Co de Phone Number [facility] [address] [place] [phone] * Basic Metabolic Panel (08/24/2024 12:40 PM EDT) Sodium 141 135 - 145 mmol/L [facility] Potassium 4.3 3.3 - 5.1 mmol/L [facility] Chloride 104 96 - 108 mmol/L [facility] Carbon Dioxide 29 22 - 29 mmol/L [facility] Anion Gap 12 12 - 20 [facility] Urea Nitrogen (BUN) 11 9 - 16 mg/dL [facility] Creatinine, Serum 0.78 0.5 - 1.4 mg/dL [facility] Estimated Glomerular Filt Rate >60 [facility] Comment:Chronic Kidney Disea se: Estimated GFR < 60 mL/min/1.05k2Gbwfdm Kidney Disease: Estimated GFR < 15 mL/min/1.73m2 Glucose 112 60 - 115 mg/dL [facility] Calcium 9.3 8.4 - 10.2 mg/dL [facility] Blood Venous blood specimen / Unknown 08/24/2024 12:40 PM EDT 08/24/2024 4:07 PM EDT Michell Rogers DO LAB BLOOD ORDERABLES Final R esult Performing Organization Address City/[facility]/ZIP Co de Phone Number [facility] [address] [place] [phone] * POCT HGB A1C (08/24/2024 11:31 AM EDT) Hemoglobin A1C 5.7 4.0 - 6.0 % QC Media Lot # [id number] Lot# Expiration Date ,889 Blood 08/24/2024 11:3 1 AM EDT Michell Navarretemarli DO POINT OF CARE TEST ENTER/EVIN T ORDERABLES Final Result * POCT Glucose (08/24/2024 11:31 AM EDT) Glucose Blood, POC 121 60 - 200 mg/dL [employer] Lot # [id number] Lot# Expiration Date [id number] Blood Capillary blood specimen / Unknown 08/24/2024 11:31 AM EDT Michell Rogers DO POINT OF CARE TEST ENTER/EVIN T ORDERABLES Final Result * External Photography - OS - Left Eye (06/20/2024 9:30 AM EST) Narrative Lissette Lopez, OD - 07/07/2024 3:17 PM EST Findings include eyelid lesion/mass (1mm round, dark, flat, nevus along lower lid (LL) margin). Notes Plan: Will refer to ophthalmology for evaluation and possible biopsy. Lissette Lopez OD OPHTH PHOTOGRAPHY Final Resul t from Last 3 Months Insurance [facility] Care Teams Dog Groomer Relationship Specialty Start Date End Date Michell Rogers DO [address] [place] [phone] PCP - General Family Medicine 02/19/15
--- OUTSIDE RECORDS SUMMARY | 2024-09-13 13:30 | XMS_ITS | Encounter Summary ---
Author Organization [employer] Address [address] [facility] [address] [place] [address] Care Team Providers Care Salon Leader Name Role Phone Michell Rogers DO Primary Care Provider + [phone] Reason for Visit * Reason Comments Med Refill Encounter Details Date Type Department Care Team ([facility] st Contact Info) Description 01/13/2024 Refill [facility] [address] [place] [address] Michell Rogers DO [address] [place], [place] [phone] Other chronic pain Social History Tobacco Use Types Packs/Day Years [...] documented as of this encounter Visit Diagnoses Diagnosis Other chronic pain documented in this encounter Additional Health Concerns Assessment Noted Time PHQ-9 Depression Total Score: 17 023 11:24 AM EDT documented as of this encounter Care Teams Salon Leader Relationship Specialty Start Date End Date Michell Rogers DO [address] [place] [phone] PCP - General Family Medicine 02/19/15 documented as of this encounter
[2024-09-13] MEDS: iohexoL 350 MG/ML 100 ML INFUS..BTL IV (14:01)
[2024-09-13] MEDS: Barium Sulfate Oral (Berry) 450 ML ORAL.SUSP 900 ML PO (14:02)
== END 2024-09-13 11:05 | disposition home or self-care (01) ==
LOC: HO.CT 11:04
PROVIDERS: PCP Family Medicine; Visit Provider Family Medicine
DX: R19.7 Diarrhea, unspecified (principal)
CPT/HCPCS: 74177; Q9967

== ENCOUNTER → 2024-09-13 11:07 | Outpatient (BNV) | payer OTHER, SELFPAY | PROVIDERS: PCP Family Medicine; Visit Provider Radiology Diagnostic Radiology | DX: R10.9 Unspecified abdominal pain (principal); R19.7 Diarrhea, unspecified | CPT/HCPCS: 74177 ==

== ENCOUNTER → 2025-02-26 11:15 | Outpatient (BNV) | payer OTHER, SELFPAY | PROVIDERS: PCP Family Medicine; Visit Provider Radiology Diagnostic Radiology | DX: M54.41 Lumbago with sciatica, right side (principal) | CPT/HCPCS: 72148 ==

== ENCOUNTER 2025-02-26 11:16 | Outpatient (REF) | payer OTHER, SELFPAY ==
--- NOTE | ~2025-02-26 | MR_ITS ---
EXAMINATION: MR LUMBAR SPINE WITHOUT CONTRAST CLINICAL INFORMATION: Worsening low back pain with radiation to right lower extremity. COMPARISON: 07/28/2023. TECHNIQUE: Multiplanar multisequence MR imaging of the lumbar spine was done without IV contrast. Examination was performed on a 1.5 Rach Siemens magnet, utilizing standard sequences. FINDINGS: CORONAL ALIGNMENT: -Normal. SAGITTAL ALIGNMENT: - Normal lordosis. -No subluxations. LUMBOSACRAL JUNCTION: -Normal. There are 5 nkh-niv-vymudel lumbar-type vertebral bodies. VERTEBRAL BODIES/BONE MARROW: -No acute fracture, compression deformity, or suspicious bone lesion. -No gross bone marrow edema, or endplate edema. -Mild edema surrounding the facet joints of L4-5, appears degenerative in etiology. DISCS: -There is loss of disc signal diffusely without significant loss of disc height. SPINAL CANAL: -No abnormal developmental findings. -There is significant dorsal epidural lipomatosis spanning L2-S1, and ventral spanning L5 and S1. CONUS MEDULLARIS: -Terminates at inferior endplate of L1. Morphology and signal is normal. INTRADURAL NERVE ROOTS: - Within normal limits. Axial Disc Space Images: T12-L1: There is no central canal or neural foraminal narrowing. There are mild degenerative facet changes bilaterally. No significant interval change. L1-L2: There is no central canal or neural foraminal narrowing. There are mild degenerative facet changes bilaterally. No significant interval change. L2-L3: There is no central canal or neural foraminal narrowing. There are mild degenerative facet changes bilaterally. No significant interval change. L3-L4: There is trace disc bulging extending into both neural foramen. Moderate hypertrophic degenerative facet changes bilaterally, with posterior ligamentous thickening/infolding. There is dorsal epidural lipomatosis. There is mild to moderate central canal narrowing, and mild bilateral neural foraminal narrowing. There is no significant interval change. L4-L5: Shallow disc bulging extending into the right greater than left foraminal zones. Moderate to severe hypertrophic degenerative facet changes bilaterally. There is posterior ligamentous thickening/infolding. There is dorsal epidural lipomatosis. Findings are resulting in moderate to severe central canal stenosis with central nerve root crowding, slightly worsened from the prior study. There is mild to moderate left greater than right neural foraminal narrowing, unchanged. No definite exiting nerve root impingement. L5-S1: Shallow disc bulge present extending into both foraminal zones. Moderate bilateral facet hypertrophic arthropathy bilaterally. There is posterior ligamentous thickening/infolding. There is dorsal and ventral epidural lipomatosis. Findings are resulting in moderate central canal stenosis, and moderate bilateral subarticular recess stenosis without definite impingement of the traversing S1 roots. Mild to moderate bilateral neural foraminal narrowing is present, similar to L4-5. Overall, no significant interval change. IMAGED SI JOINTS: -Mild to moderate degenerative arthrosis bilaterally. PARAVERTEBRAL AND INCLUDED EXTRASPINAL SOFT TISSUES: -Aorta is normal in caliber. -There are bilateral extrarenal pelves. There is a small simple cyst arising from the superior pole of the left kidney. MR/MR lumbar spine wo con IMPRESSION: 1. Mild to moderate multilevel lumbar spondylosis with superimposed predominantly dorsal epidural lipomatosis. There has been mild worsening of central canal stenosis at L4-5 with stable bilateral mild to moderate neural foraminal narrowing at this level. There is otherwise been no significant interval change. See above for details. 2. Significant and similar facet degenerative arthropathy at L4-5, with milder changes at L5-S1. Electronically signed by: Harvinder Bean MD 02/27/2025 08:58 AM EDT
--- OUTSIDE RECORDS SUMMARY | 2025-02-26 11:20 | XMS_ITS | Encounter Summary ---
Author Organization [employer] Address [address] [facility] [address] [place] [address] Care Team Providers Care Balance Weigher Name Role Phone Michell Rogers DO Primary Care Provider + [phone] Reason for Visit * Reason Comments Med Refill Encounter Details Date Type Department Care Team (Late st Contact Info) Description 02/23/2025 Refill [facility] [address] [place], [place] [phone] Michell Rogers DO [address] [place] [address] Acute right-sided thoracic back pain Social History Tobacco Use Types Packs/Day [...] as of this encounter Visit Diagnoses Diagnosis Acute right-sided thoracic back pain documented in this encounter Additional Health Concerns Assessment Noted Time PHQ-9 Depression Total Score: 11 025 2:17 PM EDT documented as of this encounter Care Teams Balance Weigher Relationship Specialty Start Date End Date Michell Rogers DO [address] [place] [address] PCP - General Family Medicine 02/19/15 documented as of this encounter
--- OUTSIDE RECORDS SUMMARY | 2025-02-26 11:20 | XMS_ITS | Encounter Summary ---
Author Organization [employer] Address [address] [facility] [address] [place] [address] Care Team Providers Care Construction Estimator Name Role Phone Michell Rogers DO Primary Care Provider + [phone] Reason for Visit * Reason Comments Med Refill Encounter Details Date Type Department Care Team (Late st Contact Info) Description 01/07/2025 Refill [facility] [address] [place], [place] [phone] Michell Rogers DO [address] [place], [place] [phone] Other chronic pain Social History Tobacco Use [...] documented as of this encounter Care Teams Construction Estimator Relationship Specialty Start Date End Date Michell Rogers DO [address] [place] [address] PCP - General Family Medicine 02/19/15 documented as of this encounter
--- OUTSIDE RECORDS SUMMARY | 2025-02-26 11:20 | XMS_ITS | Encounter Summary ---
Author Organization [employer] Address [address] [facility] [address] [place] [address] Care Team Providers Care Braille Typist Name Role Phone Michell Rogers DO Primary Care Provider + [phone] Reason for Visit * Reason Comments Med Refill Encounter Details Date Type Department Care Team (Late st Contact Info) Description 01/12/2025 Refill [facility] [address] [place], [place] [phone] Michell Rogers DO [address] [place], [place] [phone] Other chronic pain Social History Tobacco Use [...] documented as of this encounter Care Teams Braille Typist Relationship Specialty Start Date End Date Michell Rogers DO [address] [place] [address] PCP - General Family Medicine 02/19/15 documented as of this encounter
--- OUTSIDE RECORDS SUMMARY | 2025-02-26 11:20 | XMS_ITS | Encounter Summary ---
Author Organization [employer] Address [address] [facility] [address] [place] [address] Care Team Providers Care Aircraft Structural Design Engineer Name Role Phone Michell Rogers DO Primary Care Provider + [phone] Reason for Visit * Reason Comments Med Refill Encounter Details Date Type Department Care Team (Late st Contact Info) Description 11/04/2024 Refill [facility] [address] [place], [place] [phone] Michell Rogers DO [address] [place], [place] [phone] Other chronic pain Social History Tobacco Use [...] documented as of this encounter Care Teams Aircraft Structural Design Engineer Relationship Specialty Start Date End Date Michell Rogers DO [address] [place] [address] PCP - General Family Medicine 02/19/15 documented as of this encounter
--- OUTSIDE RECORDS SUMMARY | 2025-02-26 11:20 | XMS_ITS | Encounter Summary ---
Author Organization [employer] Address [address] [facility] [address] [place] [address] Care Team Providers Care Channel Cementer Insole Machine Name Role Phone Michell Rogers DO Primary Care Provider + [phone] Reason for Visit * Reason Comments Med Refill Encounter Details Date Type Department Care Team ([facility] st Contact Info) Description 04/09/2023 Refill [facility] [address] [place], [place] [phone] Michell Rogers DO [address] [place] [address] Social History Tobacco Use Types Packs/Day Years [...] documented as of this encounter Care Teams Channel Cementer Insole Machine Relationship Specialty Start Date End Date Michell Rogers DO [address] [place] [phone] PCP - General Family Medicine 02/19/15 documented as of this encounter
--- OUTSIDE RECORDS SUMMARY | 2025-02-26 11:20 | XMS_ITS | Clinical Summary ---
Author Organization [email or web address] Address [address] [facility] [address] [place] [address] Care Team Providers Care Security System Administrator Name Role Phone Michell Rogers Primary Care Provider + [phone] Allergies Active Allergy Reactions Criticality Noted Date Comments Dicyclomine Itching 05/30/2019 Penicillin G 01/05/2012 Shellfish-Derived Products 2 Medications hydrOXYzine HCl (Atarax) 25 MG tablet Take 1 tablet by mouth if needed each day for anxiety. 09/25/19 22 Active albuterol 108 (90 Base) MCG/ACT inhaler Inhale 2 puffs every 4 (four) hours if needed. 12/25/19 21 Active glucose blood (FREESTYLE LITE) test strip [...] Active Blood Pressure kit Use as directed Acti ve Blood Glucose Monitoring Suppl (FreeStyle glucose monitoring) kit 1 each in the morning. Active FreeStyle lancets 1 each by Other route in the morning. Use as instructed Active fluticasone (Flonase) 50 MCG/ACT nasal spray INHALE 2 SPRAYS IN EACH NOSTRIL ONCE DAILY IN THE MORNING 16 g 5 07/30/19 24 Active loratadine (Claritin) 10 MG tablet TAKE 1 TABLET BY MOUTH EVERY MORNING 30 tablet 5 07/30/19 24 Active fluticasone furoate (Arnuity Ellipta) 100 MCG/ACT inhaler INHALE 1 PUFF BY MOUTH IN THE MORNING RINSE MOUTH AFTER USING. 1 each 11 07/15/19 25 Active nortriptyline (Pamelor) 25 MG capsule TAKE 1 CAPSULE BY MOUTH AT BEDTIME 30 capsule 5 09/03/19 25 Active Calcium Carb-Cholecalc iferol 600-10 MG-MCG tablet TAKE 1 TABLET BY MOUTH TWICE DAILY IN THE MORNING AND IN THE EVENING 180 tablet 1 09/07/19 25 Active lisinopril 10 MG tablet TAKE 1 TABLET BY MOUTH EVERY MORNING 90 tablet 1 09/07/19 25 Active metFORMIN (Glucophage) 500 MG tabletIndicati ons:Type 2 diabetes mellitus with other specified complication, unspecified whether terminal block assembler insulin use (CMS/FORMERLY [facility]) TAKE 1 TABLET BY MOUTH EVERY EVENING WITH FOOD 90 tablet 1 11/04/19 25 Active gabapentin (Neurontin) 100 MG capsuleIndicat ions:Other chronic pain TAKE 1 CAPSULE BY MOUTH THREE TIMES DAILY IN THE MORNING, EVENING, AND BEDTIME 90 capsule 1 01/19/20 25 Active Diclofenac Sodium 1 % gel Apply 2 g topically if needed in the morning, at noon, in the evening, and at bedtime (pain). 150 g 3 01/28/20 25 Active atenolol (Tenormin) 50 MG tablet TAKE 1 TABLET BY MOUTH EVERY MORNING 90 tablet 1 02/08/20 25 Active atorvastatin (Lipitor) 80 MG tablet TAKE 1 TABLET BY MOUTH EVERY MORNING 90 tablet 1 02/08/20 25 Active omeprazole (PriLOSEC) [address] capsule TAKE 1 CAPSULE BY MOUTH TWICE DAILY IN THE MORNING AND IN THE EVENING BEFORE MEALS 180 capsule 1 02/08/20 25 Active tiZANidine (Zanaflex) 2 MG tabletIndicati ons:Acute right-sided thoracic back pain TAKE 1 TABLET BY MOUTH THREE TIMES DAILY NEEDED FOR MUSCLE PAIN 40 tablet 1 02/24/20 25 Active acetaminophen (Tylenol 8 Hour) 650 MG ER tablet TAKE 1 TABLET BY MOUTH EVERY 8 HOURS NEEDED FOR MILD PAIN 40 tablet 1 02/24/20 25 Active atenolol (Tenormin) 50 MG tablet TAKE 1 TABLET BY MOUTH EVERY MORNING 90 tablet 1 08/03/19 25 025 Discontinued atorvastatin (Lipitor) 80 MG tablet TAKE 1 TABLET BY MOUTH EVERY MORNING 90 tablet 1 08/03/19 025 Discontinued omeprazole (PriLOSEC) [address] capsule TAKE 1 CAPSULE BY MOUTH TWICE DAILY IN THE MORNING AND IN THE EVENING BEFORE MEALS 180 capsule 08/03/19 025 Discontinued acetaminophen (Tylenol 8 Hour) 650 MG ER tablet Take 1 tablet (650 mg) by mouth every 8 (eight) hours if needed for mild pain. 40 tablet 1 01/28/20 025 Discontinued tiZANidine (Zanaflex) 2 MG tabletIndicati ons:Acute right-sided thoracic back pain 1 tab as needed up to 3 times daily for muscle spasm/pain 40 tablet 1 01/28/20 025 Discontinued methylPREDNISo lone (Medrol Dospak) 4 MG tablets Follow schedule on package instructions 21 tablet 01/28/20 25 025 traMADol (Ultram) 50 MG tabletIndicati ons:Chronic bilateral low back pain with right-sided sciatica Take 1 tablet (50 mg) by mouth every 8 (eight) hours if needed for severe pain for up to 5 days. 15 tablet 01/28/20 25 025 Hospital, Clinic, or Other Facility Administered Medication Ordered Dose Route Frequency Start Date End Date Status ketorolac (Toradol) injection 30 mgIndications:Chronic bilateral low back pain with right-sided sciatica 30 mg IM Once 01/27/2025 01/27/2025 Ended Active Problems Problem Noted Date Diagnosed Date [...] Encounters Date Type Department Care Team Description 02/23/2025 Refill [facility] [address] [facility] [facility] [place] [address] Michell Rogers DO Acute right-sided thoracic back pain 02/05/2025 Refill [facility] [address] [place] [address] Michell Rogers DO 01/27/2025 12:00 PM EDT Office Visit [facility] [address] [facility] [facility] [place] [address] Michell Rogers, Rectal bleeding (Primary Dx); Chronic bilateral low back pain with right-sided sciatica; Acute right-sided thoracic back pain 01/27/2025 Travel 01/24/2025 Telephone [facility] [address] [facility] [facility] [place] [address] Michell Rogers DO Nurse Triage 01/16/2025 Refill [facility] [address] [place] [address] Michell Rogers DO Other chronic pain 01/12/2025 Refill [facility] [address] [place] [address] Michell Rogers DO Other chronic pain 01/07/2025 Refill [facility] [address] [place] [address] Michell Rogers DO Other chronic pain 01/06/2025 11:30 AM EDT Office Visit [facility] [address] [facility] [place] [id number] Dianne Barlow ANP Acute right-sided thoracic back pain (Primary Dx) 01/06/2025 Telephone [facility] [address] [place] [address] Abbie Winters, drop hammer pile driver operator Advice 01/06/2025 Travel 01/06/2025 Telephone [facility] [address] [place] [address] Michell Rogers DO Nurse Triage from Last 3 Months Immunizations Immunization Administration Dates Next Due Hep B, adult [...] Sign Reading Time Taken Comments Blood Pressure 128/70 01/27/2025 11:42 AM EDT Pulse 82 01/27/2025 11:42 AM EDT Temperature 36.4 C (97.5 F) 01/27/2025 11:42 AM EDT Respiratory Rate 19 01/27/2025 11:42 AM EDT Oxygen Saturation 97% 01/27/2025 11:42 AM EDT Inhaled Oxygen Concentration - - Weight 62.6 kg (138 lb) 01/27/2025 11:42 AM EDT Height 152.4 cm (5') 01/27/2025 11:42 AM EDT Body Mass Index 26.95 01/27/2025 11:42 AM EDT Plan of Treatment Health Maintenance Due Date Last Done Comments CT Colonography 1950 Colonoscopy 1950 Colorectal Cancer Screening 1950 FIT DNA/Cologuard 1950 FIT 1950 FOBT 1950 Sigmoidoscopy 1950 Diabetes: Foot Exam 11/29/1961 Hepatitis C Screening 11/29/1969 Influenza Vaccine (#1) 2025 , 03/23/2023, 04/04/2022, Additional history exists COVID-19 Vaccine ( season) 2025 08/24/2024, 03/23/2023, 04/04/2022, Additional history exists Depression Monitoring 02/24/2025 08/24/2024, 025 Diabetes: Hemoglobin A1C 02/24/2025 025, 08/24/2024, 01/11/2024, Additional history exists Diabetes: Urine Protein Screening 08/24/2025 08/24/2024, 04/23/2023, 05/14/2021, Additional history exists Lipid Panel 08/24/2025 08/24/2024, 04/08, 05/28/2022, Additional history exists SDOH Screening 08/24/2025 08/24/2024 Mammogram 09/02/2025 09/02/2024, 07/09, 07/22/2022, Additional history exists DTaP/Tdap/Td Vaccines (2 - Td or Tdap) 09/13/2025 09/14/2015, 03/08/2009 Alcohol/Substance Use Screening 01/06/2026 01/06/2025 Tobacco Screening 01/27/2026 01/27/2025 Eye Exam 06/20/2026 06/20/2024, 06/08, 06/20/2024, Additional history exists Hepatitis B Vaccines Completed 06/19/2015, 01/25/2015, 12/22/2014 Pneumococcal Vaccine: 50+ Years Completed 04/06/2020, 03/04/2017, 05/24/2014 Zoster Vaccines Completed 07/02/2020, 03/10, 12/22/2014 RSV Patients and Patients Aged 60 years or older Completed 01/12/2024 HIB Vaccines Aged Out No longer eligi [...] patient's age to complete this topic Meningococcal B Vaccine Aged Out No l onger eligible based on patient's age to complete [...] without long-term current use of insulin (CMS/HCC) from Last 3 Months or Most Recently Relevant to Health Maintenance Results * BI Mammogram Screening Tomosynthesis Bilateral (09/02/2024 2:21 PM EDT) Anatomical Region Laterality Modality Breast Bilateral Mammography 09/02/2024 2:21 PM EDT Narrative 09/10/2024 3:04 PM EDT [facility] [place] [address] Mammography Report Signed Patient: Janessa Hall MR#: [id number] : 1950 Acct:[id number] Age/Sex: 73 / F ADM Date: 09/02/24 Loc: HO.MAMMO Attending Dr: Michell Rogers DO Ordering Physician: Michell Rogers DO Results: 2B enign Findings Date of Service: 09/02/24 Follow Up: 1 Year From [facility] Mammogram Procedure(s): MM tomosynthesis screening BI Accession Number(s): [id number] cc: Michell Rogers DO EXAMINATION: MM SCREENING [...] Bekah Borja DO 09/10/2024 03:01 PM EDT RP Dictated By: Bekah Borja DO Signed By: <Electronically signed by Bekah Borja DO in OV> 09/10/24 1501 DD/ 1421 TD/TT: 09/02/24 1438 Rail Car Painter/Sandblaster: Procedure Note Donotuseinterpreter, Image - 09/10/2024 [facility] [address] [place], [place] [address] Mammography Report Signed Patient: Janessa HallMR#: [id number] : 1950cct:[id number] Age/Sex: 73 / FADM Date: 09/02/24 Loc: HO.MAMMO Attending Dr: Michell Rogers DO Ordering Physician: Michell Rogersults: 2B enign Findings Date of Service: 09/02/24Follow Up: 1 Year From Orig ina Mammogram Procedure(s): MM tomosynthesis screening BI Accession Number(s): [id number] cc: Michell Rogers DO EXAMINATION: MM SCREENING [...] Bekah Borja DO 09/10/2024 03:01 PM EDT RP Dictated By: Bekah Borja DO Signed By: <Electronically signed by Bekah Borja DO in OV> 09/10/24 1501 DD/ 1421 TD/TT: 09/02/24 1438 Rail Car Painter/Sandblaster: Michell Rogers DO IMG BI PROCEDURES Edited Res ult - Final * Albumin, Random Urine W/Creatinine (08/24/2024 12:40 PM EDT) Creatinine, Urine 107.41 mg/dL [facility] Microalbumin Urine 22.0 mg/L [facility] Microalbum Creatinine Ratio Ur 20.4 <30 ug/mg cr [facility] Comment:Albumin/Creatinine R atio Reference Ranges: Normal: < 30 ug/mg creatinine Microalbuminuria: 30 - 300 ug/mg creatinineClinical Albuminuria: > 300 ug/mg creatinine Urine (Urine, Random) 08/24/2024 12:40 PM EDT 08/24/2024 4:18 PM EDT Michell Rogers DO LAB URINE ORDERABLES Final R esult [facility] [address] [place] [phone] * (ABNORMAL) Lipid Panel, Standard (08/24/2024 12:40 PM EDT) Triglycerides 175(H) <150 mg/dL [facility] Comment:Desirable Triglyceri de: less than 150 mg/dLBorderline High Triglyceride 150-199 mg/dLHigh Triglyceride: 200-499 mg/dLVery High Triglyceride: greater than or equal to 5OO mg/dL Cholesterol 122 <200 mg/dL [facility] Comment:Desirable Cholestero l: less than 200 mg/dLBorderline High Cholesterol: 200-239 mg/dLHigh Cholesterol: greater than 239 mg/dL LDL Cholesterol Calculated 54 <100 mg/dL [facility] Comment:Desirable LDL: less than 100 mg/dLNear Optimal/Above Optimal LDL: 110- 129 mg/dLBorderline High LDL: 130-159 mg/dLHigh LDL: 160-189 mg/dLVery High LDL: greater than or equal to 190 mg/dL HDL Cholesterol 33(L) >40 mg/dL [facility] Comment:Desirable HDL: great er than 40 mg/dL Note: This HDL assay may give artificially low results in patients with liver disease. Blood Venous blood specimen / Unknown 08/24/2024 12:40 PM EDT 08/24/2024 4:07 PM EDT Michell Rogers DO LAB BLOOD ORDERABLES Final R esult [facility] [address] [place] [phone] * POCT HGB A1C (08/24/2024 11:31 AM EDT) Hemoglobin A1C 5.7 4.0 - 6.0 % QC Media Lot # [id number] Lot# Expiration Date Blood 08/24/2024 11:3 1 AM EDT Michell Rogers DO POINT OF CARE TEST ENTER/EVIN T ORDERABLES Final Result from Last 3 Months or Most Recently Relevant to Health Maintenance Insurance [id number] SN[facility] OPTIONS (O D-SNP) [facility] STANDARD Care Teams Security System Administrator Relationship Specialty Start Date End Date Michell Rogers DO [address] [place] [phone] PCP - General Family Medicine 02/19/15
--- OUTSIDE RECORDS SUMMARY | 2025-02-26 11:20 | XMS_ITS | Encounter Summary ---
Author Organization [employer] Address [address] [facility] [address] [place] [address] Care Team Providers Care Mixer Tender Name Role Phone Michell Rogers DO Primary Care Provider + [phone] Reason for Visit * Reason Comments Med Refill Encounter Details Date Type Department Care Team (Late st Contact Info) Description 01/13/2024 Refill [facility] [address] [place], [place] [phone] Michell Rogers DO [address] [place], [place] [phone] Other chronic pain Social History Tobacco Use [...] documented as of this encounter Care Teams Mixer Tender Relationship Specialty Start Date End Date Michell Rogers DO [address] [place] [id number] PCP - General Family Medicine 02/19/15 documented as of this encounter
== END 2025-02-26 11:17 | disposition home or self-care (01) ==
LOC: HO.MRI 11:16
PROVIDERS: PCP Family Medicine; Visit Provider Family Medicine
DX: M54.41 Lumbago with sciatica, right side (principal); G89.29 Other chronic pain
CPT/HCPCS: 72148

== ENCOUNTER 2025-05-12 08:40 | Outpatient (AMB) | payer OTHER, SELFPAY ==
--- NOTE | 2025-05-12 09:40 | MHC.OFFVIS ---
Vital Signs 05/12/25 09:41 Height 5 ft Weight 133 lb BMI 26.0 BP 121/61 Blood Pressure Location Rt brachial Position Sitting Respiration 16 Pulse 76 Pulse Source Pulse Oximeter Pulse Oximetry (%) 97 Oxygen Delivery Method Room Air Intake Visit Reasons: low back pain Obstetrics Scrub Nurse Required: No Allergies Penicillins Adverse Reaction (Unknown, Verified 05/12/25 09:43) Unknown seafood Allergy (Severe, Uncoded 05/12/25 09:43) Itching,swelling Shellfish Allergy (Severe, Uncoded 05/12/25 09:43) SOB,HIVES Medication List - Last Reconciled 05/12/25 by Aaliyah Yang LPN atenolol 50 mg PO DAILY atorvastatin (Lipitor) 80 mg PO DAILY calcium carbonate-vitamin D3 600 mg-10 mcg (400 unit) 1 tab PO fluticasone propionate 110 mcg/actuation (Flovent HFA) 2 inhalations inhalation BID gabapentin 200 mg PO TID lisinopril 10 mg PO DAILY metformin 1,000 mg PO DAILY mirtazapine 15 mg PO BEDTIME nortriptyline 25 mg PO DAILY omeprazole 20 mg PO DAILY quetiapine 25 mg PO DAILY risperidone 1 mg PO BID sertraline 100 mg PO DAILY HPI HPI low back pain: Details: History of Present Illness The patient is a 74 year old female presenting for a follow-up visit for management of back pain and right hip bursitis. Her primary complaint is back pain. She has a history of chronic low back pain with associated right hip bursitis. An MRI was previously performed, after which another doctor recommended surgery, but she wishes to pursue pain management options first due to concerns about her age. The patient has previously undergone one round of diagnostic lumbar medial branch blocks which provided 90% pain relief for the duration of the anesthetic. Her MRI findings are consistent with facet disease and spondylosis. Pain Description - Location: Chronic low back pain across the lumbar spine. - Severity: Debilitating, rated at a 9/10 intensity. - Alleviating factors: Previously had notable relief for one day from injections, and a prior round of diagnostic lumbar medial branch blocks provided 90% relief during the anesthetic phase. Physical Exam - Appears afebrile. - Alert and oriented. - Mood and affect appropriate. - Follows and participates in conversation appropriately. - Respiratory effort is unlabored. - Axial back pain worse with lumbar ROM Results - MRI: Consistent with facet disease and significant spondylosis. - Procedure: Prior diagnostic lumbar medial branch blocks provided 90% pain relief for the duration of the anesthetic phase. Pain Management - Affect: The patient reports feeling unhappy due to her back pain. - Analgesia: Current pain level is 9/10. - Activities of Daily Living: The pain is described as debilitating. [facility] Medical History Chest pain Asthma Palpitations Chronic fatigue Scoliosis GERD (gastroesophageal reflux disease) Surgical History H/O: hysterectomy Family History Father Renal failure Mother Alzheimer disease Social History (System 01/14/24 @ 16:47 by Stephanie Hoyos) Household Members: Children Alcohol intake: never Current occupational status: retired Physical Exam Vital Signs: Last Vital Signs Pulse 76 05/12/25 09:41 Resp 16 05/12/25 09:41 BP 121/61 05/12/25 09:41 Pulse Ox 97 05/12/25 09:41 Oxygen Delivery Method Room Air 05/12/25 09:41 BMI result Body Mass Index 26.0 Assessment & Plan Assessment & Plan (1) Lumbar spondylosis: Code(s): M47.816 - Spondylosis without myelopathy or radiculopathy, lumbar region Category: Medical (2) Chronic pain: Code(s): G89.29 - Other chronic pain Category: Medical Plan Plan Patient was informed and verbally consented to the use of an ambient scribe for clinic note documentation during this visit. 1. Chronic Low Back Pain - The patient has chronic, debilitating low back pain with a severity of 9/10, secondary to facet disease and spondylosis confirmed on MRI. - She has had a positive response to diagnostic lumbar medial branch blocks, with 90% relief during the anesthetic phase. - The plan is to proceed with an L4 medial branch nerve stimulator (Sprint) trial, starting with the left side, followed by the right side two weeks later, pending insurance approval. - If the Sprint stimulator trial is not approved by insurance, the alternate plan is to consider repeat diagnostic facet blocks followed by radiofrequency ablation of the medial branch nerves. - Further steroid injections are deferred pending insurance authorization. 2. Right Hip Bursitis - The patient mentioned right hip bursitis as a reason for her follow-up, but the current focus of management is on her more debilitating low back pain. Discussion Notes I discussed with the patient that her chronic low back pain, rated 9/10 in intensity, is debilitating. I explained that her prior positive response to diagnostic lumbar medial branch blocks and MRI findings of facet disease and spondylosis indicate her facet joints are a likely source of pain. I advised her that surgery is not needed at this time. We discussed treatment options, including the Sprint peripheral nerve stimulator and radiofrequency ablation. I explained that Sprint is a better therapy but requires wearing a device on her back for two months. The patient agreed to try the Sprint procedure, and I informed her that we must first obtain insurance approval. I clarified that if insurance denies the Sprint trial, our alternative plan will be to consider repeat diagnostic facet blocks followed by radiofrequency ablation. I also informed the patient and her family member that an injection could not be given today as we need to get permission from her insurance company first. Patient Instructions - We will contact your insurance company for approval to do the Sprint nerve stimulator procedure for your back pain. - Our office will call you to schedule the procedure once we get approval. - If your insurance does not approve the Sprint device, we will discuss another treatment called radiofrequency ablation. - We cannot give you a steroid injection for your pain right now because we need to get permission from your insurance company first. Coding Level of Care Code Est Pt Level 3 (06874) Diagnoses Lumbar spondylosis M47.816 Chronic pain G89.29
[2025-05-12 09:41] VITALS: BP 121/61; PULSE 76; RESP 16; O2SAT 97; BMI 26.0
== END 2025-05-12 10:04 | disposition home or self-care (01) ==
LOC: HO.PMC 08:41
PROVIDERS: PCP Family Medicine; Visit Provider Internal Medicine
DX: M47.816 Spondylosis without myelopathy or radiculopathy, lumbar region (principal); G89.29 Other chronic pain
CPT/HCPCS: 99213

== ENCOUNTER → 2025-05-12 08:40 | Outpatient (BNVA) | payer OTHER, SELFPAY | PROVIDERS: PCP Family Medicine; Visit Provider Internal Medicine | DX: M47.816 Spondylosis without myelopathy or radiculopathy, lumbar region (principal); G89.29 Other chronic pain; M70.71 Other bursitis of hip, right hip | CPT/HCPCS: 99212 ==